=== PATIENT | female | born 1935 | race Caucasian/White ===

== ENCOUNTER 2021-04-13 13:47 | Inpatient (IN) | payer MEDICARE ==
[2021-04-13] MEDS: Losartan 25 MG TAB PO SCH (20:47)
[2021-04-13] MEDS: carBAMazepine 200 MG TAB PO SCH (20:47)
[2021-04-13] MEDS: Atorvastatin Calcium 40 MG TAB PO SCH (20:47)
[2021-04-13] MEDS: Amiodarone 200 MG TAB PO SCH (20:47)
[2021-04-13] MEDS: Metoprolol Tartrate 50 MG TAB PO SCH (20:48)
[2021-04-13] MEDS: hydrALAZINE 25 MG TAB PO SCH (20:48)
[2021-04-13] MEDS ORDERED: Guaifenesin DM 100-10/5 ML UDCUP PO PRN (21:22)
[2021-04-14 07:10] LABS: #Eosinphils 0.1 thou/uL (0.0-0.7); #Lymphocytes 1.5 thou/uL (1.20-3.40); #Neutrophils 13.5 thou/uL (1.40-6.50); %Basophils 0.3 % (0.0-1.0); %Eosinophils 0.8 % (0.0-10.0); %Lymphocytes 9.4 % (21.0-51.0); %Neutrophils 83.6 % (42.0-75.0); Hemoglobin 7.4 g/dL (12.0-16.0); Mean Corpuscular HGB CONC 29.6 g/dL (32.0-36.0); Mean Corpuscular Hemoglobin 29.8 pg (27.0-31.0); Platelet Count 291 thou/uL (130-400); RBC Distribution Width 14.1 % (11.5-14.5); Red Blood Cell (RBC) Count 2.47 mill/uL (4.20-5.40); White Blood Cell (WBC) Count 16.1 thou/uL (4.8-10.8)
[2021-04-14 07:19] LABS: ALT (SGPT) 16 U/L (8-55); AST (SGOT) 22 U/L (5-34); Albumin 2.3 g/dL (3.4-4.8); Alkaline Phosphatase 48 U/L (40-110); Anion Gap 12 mmol/L (10-20); BUN (Urea Nitrogen) 32 mg/dL (9.8-20.1); Bilirubin, Total 0.3 mg/dL (0.2-1.2); Calc. Creatinine Clearance 47 mL/min (70-130); Calcium 8.1 mg/dL (7.8-10.44); Carbon Dioxide 24 mmol/L (23-31); Chloride 103 mmol/L (98-107); Globulin 3.4 g/dL (2.4-3.5); Glucose 121 mg/dL (83-110); Potassium 4.4 mmol/L (3.5-5.1); Protein, Total 5.7 g/dL (5.8-8.1); Sodium 135 mmol/L (136-145)
[2021-04-14] MEDS: Spironolactone 25 MG TAB PO SCH (08:14)
[2021-04-14] MEDS: carBAMazepine 200 MG TAB PO SCH ×2 (09:12→21:42)
[2021-04-14] MEDS: Alogliptin 25 MG TAB PO SCH (09:12)
[2021-04-14] MEDS: Furosemide 40 MG TAB PO SCH (09:13)
[2021-04-14] MEDS: Amlodipine 5 MG TAB PO SCH (09:13)
[2021-04-14] MEDS: Metoprolol Tartrate 50 MG TAB PO SCH ×2 (09:13→21:41)
[2021-04-14] MEDS: hydrALAZINE 25 MG TAB PO SCH ×2 (09:13→21:41)
[2021-04-14] MEDS: Amiodarone 200 MG TAB PO SCH ×2 (09:14→21:41)
[2021-04-14] MEDS: Ezetimibe 10 MG TAB PO SCH (09:14)
[2021-04-14] MEDS: HYDROcodone/Acetaminophen 5/325 mg Tablet PO PRN (13:01)
[2021-04-14] MEDS: Rivaroxaban 10 MG TAB PO SCH (17:27)
[2021-04-14] MEDS: Atorvastatin Calcium 40 MG TAB PO SCH (21:41)
[2021-04-14] MEDS: Losartan 25 MG TAB PO SCH (21:42)
[2021-04-15] MEDS: Spironolactone 25 MG TAB PO SCH (09:35)
[2021-04-15] MEDS: Amlodipine 5 MG TAB PO SCH (09:36)
[2021-04-15] MEDS: Alogliptin 25 MG TAB PO SCH (09:36)
[2021-04-15] MEDS: Amiodarone 200 MG TAB PO SCH ×2 (09:36→21:52)
[2021-04-15] MEDS: Furosemide 40 MG TAB PO SCH (09:37)
[2021-04-15] MEDS: carBAMazepine 200 MG TAB PO SCH ×2 (09:37→21:52)
[2021-04-15] MEDS: Ezetimibe 10 MG TAB PO SCH (09:37)
[2021-04-15] MEDS: hydrALAZINE 25 MG TAB PO SCH ×2 (09:38→21:52)
[2021-04-15] MEDS: Metoprolol Tartrate 50 MG TAB PO SCH ×2 (09:38→21:52)
[2021-04-15] MEDS: HYDROcodone/Acetaminophen 5/325 mg Tablet PO PRN (10:10)
[2021-04-15 12:58] LABS: #Basophils 0.1 thou/uL (0.0-0.2); #Eosinphils 0.1 thou/uL (0.0-0.7); #Lymphocytes 1.5 thou/uL (1.20-3.40); #Monocytes 0.8 thou/uL (0.11-0.59); #Neutrophils 18.1 thou/uL (1.40-6.50); %Basophils 0.4 % (0.0-1.0); %Eosinophils 0.7 % (0.0-10.0); %Lymphocytes 7.2 % (21.0-51.0); %Monocytes 3.9 % (0.0-10.0); %Neutrophils 87.8 % (42.0-75.0); Hemoglobin 7.8 g/dL (12.0-16.0); Mean Corpuscular Hemoglobin 30.1 pg (27.0-31.0); Mean Platelet Volume 7.2 fL (7.4-10.4); Platelet Count 387 thou/uL (130-400); RBC Distribution Width 14.3 % (11.5-14.5); White Blood Cell (WBC) Count 20.6 thou/uL (4.8-10.8)
[2021-04-15] MEDS: Rivaroxaban 10 MG TAB PO SCH (17:23)
[2021-04-15] MEDS: Losartan 25 MG TAB PO SCH (21:51)
[2021-04-15] MEDS: Atorvastatin Calcium 40 MG TAB PO SCH (21:52)
[2021-04-16] MEDS: HYDROcodone/Acetaminophen 5/325 mg Tablet PO PRN (02:43)
[2021-04-16 06:01] LABS: #Eosinphils 0.1 thou/uL (0.0-0.7); #Lymphocytes 1.9 thou/uL (1.20-3.40); #Neutrophils 15.7 thou/uL (1.40-6.50); %Basophils 0.2 % (0.0-1.0); %Eosinophils 0.7 % (0.0-10.0); %Lymphocytes 10.1 % (21.0-51.0); %Monocytes 5.2 % (0.0-10.0); %Neutrophils 83.7 % (42.0-75.0); Hemoglobin 7.4 g/dL (12.0-16.0); Mean Corpuscular HGB CONC 30.5 g/dL (32.0-36.0); Mean Corpuscular Hemoglobin 30.3 pg (27.0-31.0); Mean Corpuscular Volume 99.6 fL (78.0-98.0); Mean Platelet Volume 6.7 fL (7.4-10.4); Platelet Count 391 thou/uL (130-400); RBC Distribution Width 14.2 % (11.5-14.5); Red Blood Cell (RBC) Count 2.43 mill/uL (4.20-5.40); White Blood Cell (WBC) Count 18.7 thou/uL (4.8-10.8)
[2021-04-16] MEDS: Spironolactone 25 MG TAB PO SCH (08:08)
[2021-04-16] MEDS: Amiodarone 200 MG TAB PO SCH ×2 (08:08→20:10)
[2021-04-16] MEDS: Alogliptin 25 MG TAB PO SCH (08:08)
[2021-04-16] MEDS: Ezetimibe 10 MG TAB PO SCH (08:09)
[2021-04-16] MEDS: Amlodipine 5 MG TAB PO SCH (08:09)
[2021-04-16] MEDS: carBAMazepine 200 MG TAB PO SCH ×2 (08:09→20:10)
[2021-04-16] MEDS: Furosemide 40 MG TAB PO SCH (08:10)
[2021-04-16] MEDS: hydrALAZINE 25 MG TAB PO SCH ×2 (08:10→20:11)
[2021-04-16] MEDS: Metoprolol Tartrate 50 MG TAB PO SCH ×2 (08:10→20:10)
[2021-04-16] MEDS: Rivaroxaban 10 MG TAB PO SCH (17:36)
[2021-04-16] MEDS: Losartan 25 MG TAB PO SCH (20:10)
[2021-04-16] MEDS: Atorvastatin Calcium 40 MG TAB PO SCH (20:10)
[2021-04-16] MEDS: Acetaminophen 500 MG TAB PO PRN (20:11)
[2021-04-17] MEDS: Spironolactone 25 MG TAB PO SCH (08:51)
[2021-04-17] MEDS: Ezetimibe 10 MG TAB PO SCH (08:51)
[2021-04-17] MEDS: Metoprolol Tartrate 50 MG TAB PO SCH ×3 (08:51→20:59)
[2021-04-17] MEDS: Furosemide 40 MG TAB PO SCH (08:51)
[2021-04-17] MEDS: Amiodarone 200 MG TAB PO SCH (08:52)
[2021-04-17] MEDS: carBAMazepine 200 MG TAB PO SCH ×2 (08:52→20:56)
[2021-04-17] MEDS: Alogliptin 25 MG TAB PO SCH (08:53)
[2021-04-17] MEDS: Amlodipine 5 MG TAB PO SCH (09:39)
[2021-04-17] MEDS: hydrALAZINE 25 MG TAB PO SCH ×2 (09:39→20:57)
[2021-04-17] MEDS: HYDROcodone/Acetaminophen 5/325 mg Tablet PO PRN (13:54)
[2021-04-17] MEDS: Rivaroxaban 10 MG TAB PO SCH (17:04)
[2021-04-17] MEDS: Atorvastatin Calcium 40 MG TAB PO SCH (20:59)
[2021-04-17] MEDS: Losartan 25 MG TAB PO SCH (21:00)
[2021-04-18] MEDS: HYDROcodone/Acetaminophen 5/325 mg Tablet PO PRN ×2 (01:12→13:14)
[2021-04-18 06:00] LABS: Red Blood Cell (RBC) Count 2.16 mill/uL (4.20-5.40); White Blood Cell (WBC) Count 15.1 thou/uL (4.8-10.8)
[2021-04-18 06:01] LABS: %Neutrophils 80.6 % (42.0-75.0); Hemoglobin 6.5 g/dL (12.0-16.0); Manual Diff?? NO; Mean Corpuscular HGB CONC 29.8 g/dL (32.0-36.0); Mean Corpuscular Hemoglobin 30.2 pg (27.0-31.0); Mean Platelet Volume 6.7 fL (7.4-10.4); Platelet Count 498 thou/uL (130-400); RBC Distribution Width 14.2 % (11.5-14.5)
[2021-04-18 06:02] LABS: #Basophils 0.1 thou/uL (0.0-0.2); #Eosinphils 0.1 thou/uL (0.0-0.7); #Lymphocytes 1.5 thou/uL (1.20-3.40); #Monocytes 1.3 thou/uL (0.11-0.59); #Neutrophils 12.2 thou/uL (1.40-6.50); %Basophils 0.5 % (0.0-1.0); %Eosinophils 0.7 % (0.0-10.0); %Lymphocytes 9.8 % (21.0-51.0); %Monocytes 8.4 % (0.0-10.0)
[2021-04-18 06:16] LABS: Anion Gap 14 mmol/L (10-20); BUN (Urea Nitrogen) 37 mg/dL (9.8-20.1); Calc. Creatinine Clearance 45 mL/min (70-130); Calcium 8.1 mg/dL (7.8-10.44); Carbon Dioxide 25 mmol/L (23-31); Chloride 102 mmol/L (98-107); Glucose 106 mg/dL (83-110); Potassium 4.6 mmol/L (3.5-5.1); Sodium 136 mmol/L (136-145)
[2021-04-18] MEDS: hydrALAZINE 25 MG TAB PO SCH ×2 (08:33→20:38)
[2021-04-18] MEDS: Amlodipine 5 MG TAB PO SCH (08:33)
[2021-04-18] MEDS: Spironolactone 25 MG TAB PO SCH (08:33)
[2021-04-18] MEDS: Alogliptin 25 MG TAB PO SCH (08:33)
[2021-04-18] MEDS: carBAMazepine 200 MG TAB PO SCH ×2 (08:34→20:38)
[2021-04-18] MEDS: Ezetimibe 10 MG TAB PO SCH (08:34)
[2021-04-18] MEDS: Amiodarone 200 MG TAB PO SCH (08:34)
[2021-04-18] MEDS: Furosemide 40 MG TAB PO SCH (08:34)
[2021-04-18] MEDS: Acetaminophen 500 MG TAB PO PRN (08:34)
[2021-04-18] MEDS: Metoprolol Tartrate 50 MG TAB PO SCH ×2 (08:36→20:38)
[2021-04-18] MEDS ORDERED: Furosemide 40 MG/4 ML VIAL SLOW IVP SCH (14:45)
[2021-04-18] MEDS: Rivaroxaban 10 MG TAB PO SCH (16:49)
[2021-04-18] MEDS ORDERED: Sodium Chloride 0.9% 10 ML ONE (20:32)
[2021-04-18] MEDS: Losartan 25 MG TAB PO SCH (20:38)
[2021-04-18] MEDS: Atorvastatin Calcium 40 MG TAB PO SCH (20:38)
[2021-04-19] MEDS: Acetaminophen 500 MG TAB PO PRN (00:55)
[2021-04-19 01:56] LABS: Hemoglobin 9.3 g/dL (12.0-16.0); Red Blood Cell (RBC) Count 3.34 mill/uL (4.20-5.40); White Blood Cell (WBC) Count 12.8 thou/uL (4.8-10.8)
[2021-04-19 01:57] LABS: %Lymphocytes 11.1 % (21.0-51.0); %Neutrophils 78.3 % (42.0-75.0); Manual Diff?? NO; Mean Corpuscular HGB CONC 29.7 g/dL (32.0-36.0); Mean Corpuscular Hemoglobin 27.8 pg (27.0-31.0); Mean Platelet Volume 6.6 fL (7.4-10.4); Platelet Count 533 thou/uL (130-400); RBC Distribution Width 17.2 % (11.5-14.5)
[2021-04-19 01:58] LABS: #Basophils 0.1 thou/uL (0.0-0.2); #Eosinphils 0.2 thou/uL (0.0-0.7); #Lymphocytes 1.4 thou/uL (1.20-3.40); #Monocytes 1.2 thou/uL (0.11-0.59); %Basophils 0.4 % (0.0-1.0); %Eosinophils 1.3 % (0.0-10.0)
[2021-04-19 02:07] LABS: Mean Corpuscular Volume 93.7 fL (78.0-98.0)
[2021-04-19 02:15] LABS: Carbon Dioxide 26 mmol/L (23-31); Glucose 101 mg/dL (83-110)
[2021-04-19 02:18] LABS: Anion Gap 13 mmol/L (10-20); BUN (Urea Nitrogen) 34 mg/dL (9.8-20.1); Calc. Creatinine Clearance 48 mL/min (70-130); Calcium 8.2 mg/dL (7.8-10.44); Chloride 100 mmol/L (98-107); Sodium 135 mmol/L (136-145)
[2021-04-19] MEDS: Spironolactone 25 MG TAB PO SCH (08:10)
[2021-04-19] MEDS: Alogliptin 25 MG TAB PO SCH (08:11)
[2021-04-19] MEDS: Amiodarone 200 MG TAB PO SCH (08:11)
[2021-04-19] MEDS: Amlodipine 5 MG TAB PO SCH (08:12)
[2021-04-19] MEDS: Ezetimibe 10 MG TAB PO SCH (08:12)
[2021-04-19] MEDS: carBAMazepine 200 MG TAB PO SCH ×2 (08:12→21:27)
[2021-04-19] MEDS: hydrALAZINE 25 MG TAB PO SCH ×3 (08:13→21:27)
[2021-04-19] MEDS: Furosemide 40 MG TAB PO SCH (08:13)
[2021-04-19] MEDS: Metoprolol Tartrate 50 MG TAB PO SCH ×2 (08:13→21:29)
[2021-04-19 09:54] LABS: #Basophils 0.1 thou/uL (0.0-0.2); #Eosinphils 0.1 thou/uL (0.0-0.7); #Lymphocytes 1.2 thou/uL (1.20-3.40); #Monocytes 0.9 thou/uL (0.11-0.59); #Neutrophils 10.5 thou/uL (1.40-6.50); %Basophils 0.5 % (0.0-1.0); %Eosinophils 0.9 % (0.0-10.0); %Lymphocytes 9.1 % (21.0-51.0); %Monocytes 7.4 % (0.0-10.0); %Neutrophils 82.2 % (42.0-75.0); Hemoglobin 10.3 g/dL (12.0-16.0); Mean Corpuscular HGB CONC 30.4 g/dL (32.0-36.0); Mean Corpuscular Hemoglobin 27.9 pg (27.0-31.0); Mean Corpuscular Volume 91.9 fL (78.0-98.0); Mean Platelet Volume 6.4 fL (7.4-10.4); Platelet Count 607 thou/uL (130-400); RBC Distribution Width 17.8 % (11.5-14.5); Red Blood Cell (RBC) Count 3.69 mill/uL (4.20-5.40); White Blood Cell (WBC) Count 12.8 thou/uL (4.8-10.8)
[2021-04-19] MEDS ORDERED: Ondansetron PF 4 MG/2 ML Vial IVP SCH (10:00)
[2021-04-19] MEDS ORDERED: Sodium Chloride 0.9% 10 ML ONE (10:06)
[2021-04-19] MEDS: Cephalexin 250 MG CAP PO SCH ×2 (14:41→21:29)
[2021-04-19] MEDS: HYDROcodone/Acetaminophen 5/325 mg Tablet PO PRN (18:55)
[2021-04-19] MEDS: Atorvastatin Calcium 40 MG TAB PO SCH (21:27)
[2021-04-19] MEDS: Losartan 25 MG TAB PO SCH (21:28)
[2021-04-20] MEDS: HYDROcodone/Acetaminophen 5/325 mg Tablet PO PRN ×2 (02:14→12:04)
[2021-04-20 05:56] LABS: #Basophils 0.1 thou/uL (0.0-0.2); #Eosinphils 0.1 thou/uL (0.0-0.7); #Lymphocytes 1.8 thou/uL (1.20-3.40); #Monocytes 1.1 thou/uL (0.11-0.59); #Neutrophils 9.2 thou/uL (1.40-6.50); %Basophils 0.8 % (0.0-1.0); %Eosinophils 0.8 % (0.0-10.0); %Lymphocytes 14.7 % (21.0-51.0); %Monocytes 9.2 % (0.0-10.0); %Neutrophils 74.5 % (42.0-75.0); Hemoglobin 9.6 g/dL (12.0-16.0); Mean Corpuscular HGB CONC 30.3 g/dL (32.0-36.0); Mean Corpuscular Hemoglobin 28.1 pg (27.0-31.0); Mean Corpuscular Volume 92.8 fL (78.0-98.0); Mean Platelet Volume 6.6 fL (7.4-10.4); Platelet Count 572 thou/uL (130-400); RBC Distribution Width 17.8 % (11.5-14.5); Red Blood Cell (RBC) Count 3.41 mill/uL (4.20-5.40); White Blood Cell (WBC) Count 12.3 thou/uL (4.8-10.8)
[2021-04-20 06:12] LABS: Anion Gap 14 mmol/L (10-20); BUN (Urea Nitrogen) 32 mg/dL (9.8-20.1); Calc. Creatinine Clearance 47 mL/min (70-130); Calcium 8.4 mg/dL (7.8-10.44); Carbon Dioxide 26 mmol/L (23-31); Chloride 101 mmol/L (98-107); Glucose 95 mg/dL (83-110); Potassium 4.2 mmol/L (3.5-5.1); Sodium 137 mmol/L (136-145)
[2021-04-20] MEDS: carBAMazepine 200 MG TAB PO SCH ×2 (08:19→20:27)
[2021-04-20] MEDS: Alogliptin 25 MG TAB PO SCH (08:20)
[2021-04-20] MEDS: Spironolactone 25 MG TAB PO SCH (08:20)
[2021-04-20] MEDS: Amiodarone 200 MG TAB PO SCH (08:20)
[2021-04-20] MEDS: Amlodipine 5 MG TAB PO SCH (08:20)
[2021-04-20] MEDS: Furosemide 40 MG TAB PO SCH (08:21)
[2021-04-20] MEDS: Metoprolol Tartrate 50 MG TAB PO SCH ×2 (08:21→20:27)
[2021-04-20] MEDS: Cephalexin 250 MG CAP PO SCH ×3 (08:21→20:28)
[2021-04-20] MEDS: hydrALAZINE 25 MG TAB PO SCH ×3 (08:21→20:28)
[2021-04-20] MEDS: Ezetimibe 10 MG TAB PO SCH (08:21)
[2021-04-20] MEDS: Atorvastatin Calcium 40 MG TAB PO SCH (20:28)
[2021-04-20] MEDS: Losartan 25 MG TAB PO SCH (20:28)
[2021-04-20] MEDS: Acetaminophen 500 MG TAB PO PRN (23:38)
[2021-04-21 06:32] LABS: #Basophils 0.1 thou/uL (0.0-0.2); #Eosinphils 0.1 thou/uL (0.0-0.7); #Monocytes 1.2 thou/uL (0.11-0.59); #Neutrophils 7.8 thou/uL (1.40-6.50); %Basophils 1.2 % (0.0-1.0); %Lymphocytes 17.6 % (21.0-51.0); %Monocytes 11.1 % (0.0-10.0); %Neutrophils 69.1 % (42.0-75.0); Hemoglobin 8.8 g/dL (12.0-16.0); Mean Corpuscular HGB CONC 29.6 g/dL (32.0-36.0); Mean Corpuscular Hemoglobin 27.8 pg (27.0-31.0); Mean Corpuscular Volume 93.9 fL (78.0-98.0); Mean Platelet Volume 6.3 fL (7.4-10.4); Platelet Count 521 thou/uL (130-400); RBC Distribution Width 17.7 % (11.5-14.5); Red Blood Cell (RBC) Count 3.17 mill/uL (4.20-5.40); White Blood Cell (WBC) Count 11.2 thou/uL (4.8-10.8)
[2021-04-21] MEDS: Ezetimibe 10 MG TAB PO SCH (08:18)
[2021-04-21] MEDS: Amiodarone 200 MG TAB PO SCH (08:19)
[2021-04-21] MEDS: hydrALAZINE 25 MG TAB PO SCH ×3 (08:19→20:10)
[2021-04-21] MEDS: Spironolactone 25 MG TAB PO SCH (08:19)
[2021-04-21] MEDS: Alogliptin 25 MG TAB PO SCH (08:19)
[2021-04-21] MEDS: Cephalexin 250 MG CAP PO SCH ×3 (08:19→20:10)
[2021-04-21] MEDS: Furosemide 40 MG TAB PO SCH (08:19)
[2021-04-21] MEDS: carBAMazepine 200 MG TAB PO SCH ×2 (08:20→20:11)
[2021-04-21] MEDS: Metoprolol Tartrate 50 MG TAB PO SCH ×2 (08:20→20:11)
[2021-04-21] MEDS: Amlodipine 5 MG TAB PO SCH (08:21)
[2021-04-21] MEDS ORDERED: Milk Of Magnesia 30 ML UDCUP PO PRN (08:47)
[2021-04-21] MEDS: Acetaminophen 500 MG TAB PO PRN (09:28)
[2021-04-21] MEDS: Bisacodyl 10 MG SUPP PR PRN (09:29)
[2021-04-21] MEDS: Polyethylene Glycol 3350 17 GM Packet PO SCH (09:29)
[2021-04-21] MEDS: Atorvastatin Calcium 40 MG TAB PO SCH (20:10)
[2021-04-21] MEDS: Losartan 25 MG TAB PO SCH (20:11)
[2021-04-22] MEDS: Acetaminophen 500 MG TAB PO PRN ×3 (04:30→23:31)
[2021-04-22 05:57] LABS: Anion Gap 13 mmol/L (10-20); BUN (Urea Nitrogen) 26 mg/dL (9.8-20.1); Calc. Creatinine Clearance 47 mL/min (70-130); Calcium 8.2 mg/dL (7.8-10.44); Carbon Dioxide 27 mmol/L (23-31); Chloride 101 mmol/L (98-107); Glucose 104 mg/dL (83-110); Sodium 137 mmol/L (136-145)
[2021-04-22 06:05] LABS: White Blood Cell (WBC) Count 10.7 thou/uL (4.8-10.8)
[2021-04-22 06:06] LABS: %Lymphocytes 18.7 % (21.0-51.0); %Monocytes 11.5 % (0.0-10.0); %Neutrophils 68.2 % (42.0-75.0); Hemoglobin 8.8 g/dL (12.0-16.0); Mean Corpuscular HGB CONC 30.3 g/dL (32.0-36.0); Mean Corpuscular Hemoglobin 28.2 pg (27.0-31.0); Mean Corpuscular Volume 93.1 fL (78.0-98.0); Mean Platelet Volume 6.3 fL (7.4-10.4); Platelet Count 465 thou/uL (130-400); RBC Distribution Width 16.7 % (11.5-14.5)
[2021-04-22 06:07] LABS: #Basophils 0.1 thou/uL (0.0-0.2); #Eosinphils 0.1 thou/uL (0.0-0.7); #Monocytes 1.2 thou/uL (0.11-0.59); #Neutrophils 7.3 thou/uL (1.40-6.50); %Basophils 0.8 % (0.0-1.0); %Eosinophils 0.9 % (0.0-10.0)
[2021-04-22] MEDS: Polyethylene Glycol 3350 17 GM Packet PO SCH (08:07)
[2021-04-22] MEDS: Metoprolol Tartrate 50 MG TAB PO SCH ×2 (08:08→20:21)
[2021-04-22] MEDS: hydrALAZINE 25 MG TAB PO SCH ×3 (08:08→20:21)
[2021-04-22] MEDS: carBAMazepine 200 MG TAB PO SCH ×2 (08:08→20:20)
[2021-04-22] MEDS: Amlodipine 5 MG TAB PO SCH (08:09)
[2021-04-22] MEDS: Spironolactone 25 MG TAB PO SCH (08:09)
[2021-04-22] MEDS: Alogliptin 25 MG TAB PO SCH (08:10)
[2021-04-22] MEDS: Amiodarone 200 MG TAB PO SCH (08:10)
[2021-04-22] MEDS: Furosemide 40 MG TAB PO SCH (08:10)
[2021-04-22] MEDS: Cephalexin 250 MG CAP PO SCH ×3 (08:11→20:21)
[2021-04-22] MEDS ORDERED: Ezetimibe 10 MG TAB PO SCH (10:15)
[2021-04-22] MEDS: Ezetimibe 10 MG TAB PO SCH (11:49)
[2021-04-22] MEDS: Bisacodyl 10 MG SUPP PR PRN (14:52)
[2021-04-22] MEDS: Atorvastatin Calcium 40 MG TAB PO SCH (20:20)
[2021-04-22] MEDS: Losartan 25 MG TAB PO SCH (20:21)
[2021-04-23 06:21] VITALS: BMI 33.7
[2021-04-23] MEDS: Polyethylene Glycol 3350 17 GM Packet PO SCH (08:44)
[2021-04-23] MEDS: Furosemide 40 MG TAB PO SCH (08:45)
[2021-04-23] MEDS: carBAMazepine 200 MG TAB PO SCH ×2 (08:45→21:17)
[2021-04-23] MEDS: Metoprolol Tartrate 50 MG TAB PO SCH ×2 (08:45→21:18)
[2021-04-23] MEDS: Spironolactone 25 MG TAB PO SCH (08:46)
[2021-04-23] MEDS: Amlodipine 5 MG TAB PO SCH (08:47)
[2021-04-23] MEDS: Alogliptin 25 MG TAB PO SCH (08:47)
[2021-04-23] MEDS: Amiodarone 200 MG TAB PO SCH (08:50)
[2021-04-23] MEDS: Ezetimibe 10 MG TAB PO SCH (08:51)
[2021-04-23] MEDS: hydrALAZINE 25 MG TAB PO SCH ×3 (08:51→21:17)
[2021-04-23] MEDS: Losartan 25 MG TAB PO SCH (21:17)
[2021-04-23] MEDS: Atorvastatin Calcium 40 MG TAB PO SCH (21:17)
[2021-04-23] MEDS: Acetaminophen 500 MG TAB PO PRN (21:18)
[2021-04-23] MEDS: HYDROcodone/Acetaminophen 5/325 mg Tablet PO PRN (23:25)
[2021-04-24 05:47] LABS: #Basophils 0.1 thou/uL (0.0-0.2); #Eosinphils 0.2 thou/uL (0.0-0.7); #Lymphocytes 2.5 thou/uL (1.20-3.40); #Monocytes 1.2 thou/uL (0.11-0.59); #Neutrophils 6.4 thou/uL (1.40-6.50); %Basophils 1.2 % (0.0-1.0); %Eosinophils 1.5 % (0.0-10.0); %Lymphocytes 24.5 % (21.0-51.0); %Monocytes 11.5 % (0.0-10.0); %Neutrophils 61.3 % (42.0-75.0); Mean Corpuscular HGB CONC 29.9 g/dL (32.0-36.0); Mean Corpuscular Hemoglobin 28.1 pg (27.0-31.0); Mean Corpuscular Volume 93.9 fL (78.0-98.0); Mean Platelet Volume 6.3 fL (7.4-10.4); Platelet Count 412 thou/uL (130-400); RBC Distribution Width 16.5 % (11.5-14.5); White Blood Cell (WBC) Count 10.4 thou/uL (4.8-10.8)
[2021-04-24] MEDS: Alogliptin 25 MG TAB PO SCH (08:32)
[2021-04-24] MEDS: Amlodipine 5 MG TAB PO SCH (08:32)
[2021-04-24] MEDS: Amiodarone 200 MG TAB PO SCH (08:32)
[2021-04-24] MEDS: Spironolactone 25 MG TAB PO SCH (08:32)
[2021-04-24] MEDS: Ezetimibe 10 MG TAB PO SCH (08:33)
[2021-04-24] MEDS: carBAMazepine 200 MG TAB PO SCH ×2 (08:33→20:51)
[2021-04-24] MEDS: hydrALAZINE 25 MG TAB PO SCH ×3 (08:34→20:51)
[2021-04-24] MEDS: Metoprolol Tartrate 50 MG TAB PO SCH ×2 (08:34→20:52)
[2021-04-24] MEDS: Furosemide 40 MG TAB PO SCH (08:34)
[2021-04-24] MEDS: Polyethylene Glycol 3350 17 GM Packet PO SCH (08:34)
[2021-04-24] MEDS: Acetaminophen 500 MG TAB PO PRN (13:35)
[2021-04-24] MEDS: Atorvastatin Calcium 40 MG TAB PO SCH (20:51)
[2021-04-24] MEDS: Losartan 25 MG TAB PO SCH (20:52)
[2021-04-25] MEDS: HYDROcodone/Acetaminophen 5/325 mg Tablet PO PRN (01:42)
[2021-04-25] MEDS: Spironolactone 25 MG TAB PO SCH (08:31)
[2021-04-25] MEDS: Alogliptin 25 MG TAB PO SCH (08:32)
[2021-04-25] MEDS: Amiodarone 200 MG TAB PO SCH (08:34)
[2021-04-25] MEDS: Amlodipine 5 MG TAB PO SCH (08:34)
[2021-04-25] MEDS: carBAMazepine 200 MG TAB PO SCH ×2 (08:35→20:23)
[2021-04-25] MEDS: hydrALAZINE 25 MG TAB PO SCH ×3 (08:36→20:22)
[2021-04-25] MEDS: Furosemide 40 MG TAB PO SCH (08:36)
[2021-04-25] MEDS: Ezetimibe 10 MG TAB PO SCH (08:36)
[2021-04-25] MEDS: Polyethylene Glycol 3350 17 GM Packet PO SCH (08:37)
[2021-04-25] MEDS: Metoprolol Tartrate 50 MG TAB PO SCH ×2 (08:37→20:25)
[2021-04-25] MEDS: Acetaminophen 500 MG TAB PO PRN (15:58)
[2021-04-25] MEDS: Atorvastatin Calcium 40 MG TAB PO SCH (20:22)
[2021-04-25] MEDS: Losartan Potassium 50 MG TAB PO SCH (20:25)
[2021-04-26] MEDS: HYDROcodone/Acetaminophen 5/325 mg Tablet PO PRN (01:14)
[2021-04-26] MEDS: Acetaminophen 500 MG TAB PO PRN ×2 (08:50→23:37)
[2021-04-26] MEDS: Ezetimibe 10 MG TAB PO SCH (08:50)
[2021-04-26] MEDS: Amlodipine 5 MG TAB PO SCH (08:51)
[2021-04-26] MEDS: hydrALAZINE 25 MG TAB PO SCH ×3 (08:51→20:19)
[2021-04-26] MEDS: Alogliptin 25 MG TAB PO SCH (08:52)
[2021-04-26] MEDS: Furosemide 40 MG TAB PO SCH (08:52)
[2021-04-26] MEDS: carBAMazepine 200 MG TAB PO SCH ×2 (08:52→20:19)
[2021-04-26] MEDS: Metoprolol Tartrate 50 MG TAB PO SCH ×2 (08:52→20:19)
[2021-04-26] MEDS: Spironolactone 25 MG TAB PO SCH (08:53)
[2021-04-26] MEDS: Amiodarone 200 MG TAB PO SCH (08:53)
[2021-04-26] MEDS: Polyethylene Glycol 3350 17 GM Packet PO SCH (08:53)
[2021-04-26] MEDS: Atorvastatin Calcium 40 MG TAB PO SCH (20:17)
[2021-04-26] MEDS: Losartan Potassium 50 MG TAB PO SCH (20:18)
[2021-04-27] MEDS: Spironolactone 25 MG TAB PO SCH (08:16)
[2021-04-27] MEDS: Amlodipine 5 MG TAB PO SCH (08:17)
[2021-04-27] MEDS: Alogliptin 25 MG TAB PO SCH (08:17)
[2021-04-27] MEDS: Amiodarone 200 MG TAB PO SCH (08:19)
[2021-04-27] MEDS: Ezetimibe 10 MG TAB PO SCH (08:19)
[2021-04-27] MEDS: hydrALAZINE 25 MG TAB PO SCH (08:19)
[2021-04-27] MEDS: Furosemide 40 MG TAB PO SCH (08:19)
[2021-04-27] MEDS: Metoprolol Tartrate 50 MG TAB PO SCH (08:19)
[2021-04-27] MEDS: carBAMazepine 200 MG TAB PO SCH (08:19)
[2021-04-27] MEDS: Polyethylene Glycol 3350 17 GM Packet PO SCH (08:21)
[2021-04-27] MEDS: Acetaminophen 500 MG TAB PO PRN (10:17)
[2021-04-27 15:29] VITALS: BP 154/62; TEMP 97.6
== END 2021-04-27 13:45 | disposition home health service (06) | DRG 559 ==
LOC: NAV ACUTE 16:50
PROVIDERS: ADMIT Internal Medicine; ATTEND Internal Medicine
PROC: 30233N1 Transfusion of Nonautologous Red Blood Cells into Peripheral Vein, Percutaneous Approach (ICD-10-PCS; principal; 2021-04-18)
PROC: 2Y41X5Z Packing of Nasal Region using Packing Material (ICD-10-PCS; 2021-04-18)
DX: Z47.1 Aftercare following joint replacement surgery (principal); J96.01 Acute respiratory failure with hypoxia; D62 Acute posthemorrhagic anemia; K92.1 Melena; I48.0 Paroxysmal atrial fibrillation; I25.10 Atherosclerotic heart disease of native coronary artery without angina pectoris; E78.5 Hyperlipidemia, unspecified; G50.0 Trigeminal neuralgia; I12.9 Hypertensive chronic kidney disease with stage 1 through stage 4 chronic kidney disease, or unspecified chronic kidney disease; E11.22 Type 2 diabetes mellitus with diabetic chronic kidney disease; N32.81 Overactive bladder; R53.81 Other malaise; N18.32 Chronic kidney disease, stage 3b; R04.0 Epistaxis; K59.00 Constipation, unspecified; Z90.49 Acquired absence of other specified parts of digestive tract; Z95.1 Presence of aortocoronary bypass graft; Z95.5 Presence of coronary angioplasty implant and graft; Z98.890 Other specified postprocedural states; Z87.891 Personal history of nicotine dependence; Z88.5 Allergy status to narcotic agent; Z79.01 Long term (current) use of anticoagulants; Z79.899 Other long term (current) drug therapy
CPT/HCPCS: 36416; 36430; 71045; 80048; 80053; 85025; 86850; 86900; 86901; J1940; J2405; P9016

== ENCOUNTER 2022-11-22 16:29 | Inpatient (IN) | payer OTHER, MEDICARE ==
[2022-11-22] MEDS ORDERED: Acetaminophen 650 MG Suppository PR PRN (19:33)
[2022-11-22] MEDS ORDERED: Artificial Tear Sol 15 ML BOT EA EYE PRN (19:33)
[2022-11-22] MEDS ORDERED: Acetaminophen 325 MG TAB PO PRN (19:33)
[2022-11-22] MEDS ORDERED: Benzonatate 100 MG CAP PO PRN (19:33)
[2022-11-22] MEDS ORDERED: Guaifenesin DM 100-10/5 ML UDCUP PO PRN (19:33)
[2022-11-22] MEDS ORDERED: Dextrose 50% Abboject 50 ML SYRINGE SLOW IVP PRN (19:33)
[2022-11-22] MEDS ORDERED: Insulin Regular 300 UNITS/3 ML VIAL SC PRN (19:33)
[2022-11-22] MEDS ORDERED: Cepastat Lozenges 1 LOZ PO PRN (19:33)
[2022-11-22] MEDS ORDERED: Bisacodyl 10 MG SUPP PR PRN (19:33)
[2022-11-22] MEDS ORDERED: Sodium Chloride 0.65% Nasal 44 ML BOT EA NARE PRN (19:33)
[2022-11-22] MEDS ORDERED: Cyclobenzaprine 10 MG TAB PO PRN (22:23)
[2022-11-22] MEDS ORDERED: Melatonin 3 MG TAB PO PRN (22:26)
[2022-11-22] MEDS ORDERED: Ferrous Sulfate 325 MG TAB PO SCH (22:30)
[2022-11-22] MEDS ORDERED: HumaLOG 300 UNITS/3 ML VIAL SC PRN (22:30)
[2022-11-22] MEDS ORDERED: Atorvastatin Calcium 40 MG TAB PO SCH (22:30)
[2022-11-22] MEDS ORDERED: Flecainide 50 MG TAB PO SCH (22:30)
[2022-11-22] MEDS ORDERED: hydrALAZINE 25 MG TAB PO SCH (22:30)
[2022-11-22] MEDS ORDERED: carBAMazepine 200 MG TAB PO SCH (22:30)
[2022-11-22] MEDS: Famotidine 20 MG TAB PO SCH (22:35)
[2022-11-23 01:50] LABS: SARS-CoV-2 NAA Rapid Test Not Detected (NotDetected)
[2022-11-23] MEDS: Levothyroxine Sodium 100 MCG TAB PO SCH (05:48)
[2022-11-23 06:02] LABS: #Basophils 0.1 thou/uL (0.0-0.2); #Eosinphils 0.2 thou/uL (0.0-0.7); #Lymphocytes 2.9 thou/uL (1.20-3.40); #Monocytes 1.1 thou/uL (0.11-0.59); #Neutrophils 5.3 thou/uL (1.40-6.50); %Eosinophils 2.6 % (0.0-10.0); %Lymphocytes 29.9 % (21.0-51.0); %Monocytes 11.5 % (0.0-10.0); %Neutrophils 54.9 % (42.0-75.0); Hemoglobin 8.2 g/dL (12.0-16.0); Mean Corpuscular HGB CONC 32.2 g/dL (32.0-36.0); Mean Corpuscular Hemoglobin 31.4 pg (27.0-31.0); Mean Corpuscular Volume 97.4 fl (78.0-98.0); Mean Platelet Volume 6.8 fL (7.4-10.4); Platelet Count 290 10x3/uL (130-400); RBC Distribution Width 14.1 % (11.5-14.5); Red Blood Cell (RBC) Count 2.62 mill/uL (4.20-5.40); White Blood Cell (WBC) Count 9.6 10x3/uL (4.8-10.8)
[2022-11-23 06:19] LABS: ALT (SGPT) 16 U/L (8-55); AST (SGOT) 40 U/L (5-34); Albumin 2.8 g/dL (3.4-4.8); Alkaline Phosphatase 71 U/L (40-110); Anion Gap 14 mmol/L (10-20); BUN (Urea Nitrogen) 46 mg/dL (9.8-20.1); Bilirubin, Total 0.5 mg/dL (0.2-1.2); Calc. Creatinine Clearance 30 mL/min (70-130); Calcium 8.6 mg/dL (7.8-10.44); Carbon Dioxide 22 mmol/L (23-31); Chloride 102 mmol/L (98-107); Estimated GFR 31; Globulin 3.8 g/dL (2.4-3.5); Glucose 99 mg/dL (83-110); Potassium 4.1 mmol/L (3.5-5.1); Protein, Total 6.6 g/dL (5.8-8.1); Sodium 134 mmol/L (136-145)
[2022-11-23] MEDS: Furosemide 40 MG TAB PO SCH (08:29)
[2022-11-23] MEDS: Spironolactone 25 MG TAB PO SCH (08:29)
[2022-11-23] MEDS: Alogliptin 6.25 MG TAB PO SCH (08:29)
[2022-11-23] MEDS: Clopidogrel Bisulfate 75 MG TAB PO SCH (08:29)
[2022-11-23] MEDS: Flecainide 50 MG TAB PO SCH ×2 (08:29→21:35)
[2022-11-23] MEDS: Ferrous Sulfate 325 MG TAB PO SCH ×2 (08:29→17:44)
[2022-11-23] MEDS: Cyanocobalamin (Vitamin B-12) 1,000 MCG TAB PO SCH (08:33)
[2022-11-23] MEDS: carBAMazepine 200 MG TAB PO SCH ×2 (08:33→21:33)
[2022-11-23] MEDS: Ascorbic Acid 500 mg Chewable Tablet PO SCH ×2 (08:33→21:35)
[2022-11-23] MEDS: Amitriptyline HCl 25 MG TAB PO SCH (08:33)
[2022-11-23] MEDS: Amlodipine 10 MG TAB PO SCH (08:34)
[2022-11-23] MEDS: Gabapentin 100 MG CAP PO SCH (08:34)
[2022-11-23] MEDS: hydrALAZINE 25 MG TAB PO SCH ×2 (08:40→21:35)
[2022-11-23] MEDS ORDERED: Losartan 25 MG TAB PO SCH (09:00)
[2022-11-23] MEDS ORDERED: Alogliptin 25 MG TAB PO SCH (09:00)
[2022-11-23] MEDS ORDERED: Acetaminophen 325 MG TAB PO PRN ×2 (15:00→15:20)
[2022-11-23] MEDS ORDERED: Acetaminophen 650 MG Suppository PR PRN ×3 (15:01→15:55)
[2022-11-23] MEDS: Famotidine 20 MG TAB PO SCH (21:35)
[2022-11-23] MEDS: Atorvastatin Calcium 40 MG TAB PO SCH (21:35)
[2022-11-24 05:33] LABS: #Basophils 0.1 thou/uL (0.0-0.2); #Eosinphils 0.3 thou/uL (0.0-0.7); #Lymphocytes 2.6 thou/uL (1.20-3.40); #Neutrophils 6.6 thou/uL (1.40-6.50); %Eosinophils 2.8 % (0.0-10.0); %Lymphocytes 24.6 % (21.0-51.0); %Monocytes 9.5 % (0.0-10.0); %Neutrophils 62.2 % (42.0-75.0); Hemoglobin 8.1 g/dL (12.0-16.0); Mean Corpuscular HGB CONC 32.2 g/dL (32.0-36.0); Mean Corpuscular Hemoglobin 31.5 pg (27.0-31.0); Mean Corpuscular Volume 97.9 fl (78.0-98.0); Mean Platelet Volume 7.2 fL (7.4-10.4); Platelet Count 322 10x3/uL (130-400); RBC Distribution Width 14.4 % (11.5-14.5); Red Blood Cell (RBC) Count 2.56 mill/uL (4.20-5.40); White Blood Cell (WBC) Count 10.7 10x3/uL (4.8-10.8)
[2022-11-24] MEDS: Levothyroxine Sodium 100 MCG TAB PO SCH (05:53)
[2022-11-24] MEDS: carBAMazepine 200 MG TAB PO SCH ×2 (08:53→20:30)
[2022-11-24] MEDS: Losartan Potassium 50 MG TAB PO SCH (08:53)
[2022-11-24] MEDS: Flecainide 50 MG TAB PO SCH ×2 (08:55→20:31)
[2022-11-24] MEDS: Alogliptin 6.25 MG TAB PO SCH (08:55)
[2022-11-24] MEDS: Cyanocobalamin (Vitamin B-12) 1,000 MCG TAB PO SCH (08:55)
[2022-11-24] MEDS: Ascorbic Acid 500 mg Chewable Tablet PO SCH ×2 (08:56→20:30)
[2022-11-24] MEDS: Clopidogrel Bisulfate 75 MG TAB PO SCH (08:56)
[2022-11-24] MEDS: Spironolactone 25 MG TAB PO SCH (08:56)
[2022-11-24] MEDS: hydrALAZINE 25 MG TAB PO SCH ×2 (08:57→20:31)
[2022-11-24] MEDS: Furosemide 40 MG TAB PO SCH (08:58)
[2022-11-24] MEDS: Amitriptyline HCl 25 MG TAB PO SCH (08:58)
[2022-11-24] MEDS: Ferrous Sulfate 325 MG TAB PO SCH ×2 (08:58→17:42)
[2022-11-24] MEDS: Gabapentin 100 MG CAP PO SCH ×2 (08:59→09:22)
[2022-11-24] MEDS: Amlodipine 10 MG TAB PO SCH (09:01)
[2022-11-24] MEDS: Atorvastatin Calcium 40 MG TAB PO SCH (20:30)
[2022-11-24] MEDS: Famotidine 20 MG TAB PO SCH (20:31)
[2022-11-24] MEDS: Acetaminophen/Codeine 30-300mg Tablet PO PRN (21:19)
[2022-11-25] MEDS: Levothyroxine Sodium 100 MCG TAB PO SCH (05:42)
[2022-11-25 05:55] LABS: #Basophils 0.1 thou/uL (0.0-0.2); #Eosinphils 0.3 thou/uL (0.0-0.7); #Lymphocytes 2.8 thou/uL (1.20-3.40); #Neutrophils 7.1 thou/uL (1.40-6.50); %Basophils 0.8 % (0.0-1.0); %Eosinophils 2.7 % (0.0-10.0); %Lymphocytes 25.2 % (21.0-51.0); %Monocytes 8.9 % (0.0-10.0); %Neutrophils 62.4 % (42.0-75.0); Hemoglobin 7.8 g/dL (12.0-16.0); Mean Corpuscular HGB CONC 31.7 g/dL (32.0-36.0); Mean Platelet Volume 6.7 fL (7.4-10.4); Platelet Count 363 10x3/uL (130-400); RBC Distribution Width 14.6 % (11.5-14.5); Red Blood Cell (RBC) Count 2.51 mill/uL (4.20-5.40); White Blood Cell (WBC) Count 11.3 10x3/uL (4.8-10.8)
[2022-11-25] MEDS: Ascorbic Acid 500 mg Chewable Tablet PO SCH ×2 (08:37→21:31)
[2022-11-25] MEDS: carBAMazepine 200 MG TAB PO SCH ×2 (08:38→21:29)
[2022-11-25] MEDS: Alogliptin 6.25 MG TAB PO SCH (08:38)
[2022-11-25] MEDS: Ferrous Sulfate 325 MG TAB PO SCH ×2 (08:39→16:47)
[2022-11-25] MEDS: Furosemide 40 MG TAB PO SCH (08:39)
[2022-11-25] MEDS: Amitriptyline HCl 25 MG TAB PO SCH (08:39)
[2022-11-25] MEDS: Clopidogrel Bisulfate 75 MG TAB PO SCH (08:39)
[2022-11-25] MEDS: Cyanocobalamin (Vitamin B-12) 1,000 MCG TAB PO SCH (08:39)
[2022-11-25] MEDS: Flecainide 50 MG TAB PO SCH ×2 (08:39→21:31)
[2022-11-25] MEDS: Amlodipine 10 MG TAB PO SCH (08:44)
[2022-11-25] MEDS: hydrALAZINE 25 MG TAB PO SCH ×2 (08:45→21:31)
[2022-11-25] MEDS: Spironolactone 25 MG TAB PO SCH (08:45)
[2022-11-25] MEDS: Losartan Potassium 50 MG TAB PO SCH (08:45)
[2022-11-25] MEDS: Acetaminophen 325 MG TAB PO PRN ×2 (10:20→18:02)
[2022-11-25] MEDS: Atorvastatin Calcium 40 MG TAB PO SCH (21:31)
[2022-11-25] MEDS: Famotidine 20 MG TAB PO SCH (21:32)
[2022-11-26] MEDS: Levothyroxine Sodium 100 MCG TAB PO SCH (05:33)
[2022-11-26 05:56] LABS: #Basophils 0.1 thou/uL (0.0-0.2); #Eosinphils 0.3 thou/uL (0.0-0.7); #Lymphocytes 3.1 thou/uL (1.20-3.40); #Monocytes 1.1 thou/uL (0.11-0.59); #Neutrophils 7.2 thou/uL (1.40-6.50); %Basophils 0.9 % (0.0-1.0); %Eosinophils 2.2 % (0.0-10.0); %Lymphocytes 26.5 % (21.0-51.0); %Neutrophils 61.4 % (42.0-75.0); Hemoglobin 7.9 g/dL (12.0-16.0); Mean Corpuscular HGB CONC 31.7 g/dL (32.0-36.0); Mean Corpuscular Hemoglobin 31.7 pg (27.0-31.0); Mean Platelet Volume 6.8 fL (7.4-10.4); Platelet Count 422 10x3/uL (130-400); RBC Distribution Width 14.9 % (11.5-14.5); Red Blood Cell (RBC) Count 2.48 mill/uL (4.20-5.40); White Blood Cell (WBC) Count 11.7 10x3/uL (4.8-10.8)
[2022-11-26] MEDS: Acetaminophen/Codeine 30-300mg Tablet PO PRN (08:44)
[2022-11-26] MEDS: Amitriptyline HCl 25 MG TAB PO SCH (10:12)
[2022-11-26] MEDS: Ascorbic Acid 500 mg Chewable Tablet PO SCH ×2 (10:12→21:35)
[2022-11-26] MEDS: carBAMazepine 200 MG TAB PO SCH ×2 (10:13→23:20)
[2022-11-26] MEDS: Amlodipine 10 MG TAB PO SCH (10:14)
[2022-11-26] MEDS: Clopidogrel Bisulfate 75 MG TAB PO SCH (10:16)
[2022-11-26] MEDS: Alogliptin 6.25 MG TAB PO SCH (10:16)
[2022-11-26] MEDS: Losartan Potassium 50 MG TAB PO SCH (10:16)
[2022-11-26] MEDS: hydrALAZINE 25 MG TAB PO SCH ×2 (10:17→21:48)
[2022-11-26] MEDS: Cyanocobalamin (Vitamin B-12) 1,000 MCG TAB PO SCH (10:17)
[2022-11-26] MEDS: Furosemide 40 MG TAB PO SCH (10:17)
[2022-11-26] MEDS: Flecainide 50 MG TAB PO SCH ×2 (10:18→21:35)
[2022-11-26] MEDS: Spironolactone 25 MG TAB PO SCH (12:39)
[2022-11-26] MEDS: Ferrous Sulfate 325 MG TAB PO SCH ×2 (12:39→16:27)
[2022-11-26] MEDS: Senokot S 8.6-50 MG TAB PO PRN (17:05)
[2022-11-26] MEDS: Atorvastatin Calcium 40 MG TAB PO SCH (21:35)
[2022-11-26] MEDS: Famotidine 20 MG TAB PO SCH (21:35)
[2022-11-27] MEDS: Levothyroxine Sodium 100 MCG TAB PO SCH (05:40)
[2022-11-27] MEDS: Acetaminophen/Codeine 30-300mg Tablet PO PRN (08:26)
[2022-11-27] MEDS: hydrALAZINE 25 MG TAB PO SCH ×2 (09:03→20:33)
[2022-11-27] MEDS: Ferrous Sulfate 325 MG TAB PO SCH ×2 (09:03→17:22)
[2022-11-27] MEDS: Losartan Potassium 50 MG TAB PO SCH (09:04)
[2022-11-27] MEDS: Ascorbic Acid 500 mg Chewable Tablet PO SCH ×2 (09:04→20:34)
[2022-11-27] MEDS: Spironolactone 25 MG TAB PO SCH (09:04)
[2022-11-27] MEDS: Alogliptin 6.25 MG TAB PO SCH (09:04)
[2022-11-27] MEDS: Amitriptyline HCl 25 MG TAB PO SCH (09:04)
[2022-11-27] MEDS: Furosemide 40 MG TAB PO SCH (09:05)
[2022-11-27] MEDS: Cyanocobalamin (Vitamin B-12) 1,000 MCG TAB PO SCH (09:05)
[2022-11-27] MEDS: Clopidogrel Bisulfate 75 MG TAB PO SCH (09:05)
[2022-11-27] MEDS: Flecainide 50 MG TAB PO SCH ×2 (09:05→20:33)
[2022-11-27] MEDS: Amlodipine 10 MG TAB PO SCH (09:05)
[2022-11-27] MEDS: carBAMazepine 200 MG TAB PO SCH ×2 (09:06→20:32)
[2022-11-27] MEDS ORDERED: Epoetin (ESRD) 20,000 UNITS/ML SC SCH (10:45)
[2022-11-27] MEDS: Acetaminophen 325 MG TAB PO PRN (13:26)
[2022-11-27] MEDS: Bisacodyl 5 MG TAB PO PRN (17:22)
[2022-11-27] MEDS: Atorvastatin Calcium 40 MG TAB PO SCH (20:33)
[2022-11-27] MEDS: Famotidine 20 MG TAB PO SCH (20:33)
[2022-11-28] MEDS: Levothyroxine Sodium 100 MCG TAB PO SCH (05:16)
[2022-11-28 06:24] LABS: #Basophils 0.1 thou/uL (0.0-0.2); #Eosinphils 0.2 thou/uL (0.0-0.7); #Monocytes 1.2 thou/uL (0.11-0.59); #Neutrophils 10.1 thou/uL (1.40-6.50); %Basophils 0.9 % (0.0-1.0); %Eosinophils 1.2 % (0.0-10.0); %Lymphocytes 25.6 % (21.0-51.0); %Monocytes 7.7 % (0.0-10.0); %Neutrophils 64.5 % (42.0-75.0); Hemoglobin 8.1 g/dL (12.0-16.0); Mean Corpuscular HGB CONC 31.5 g/dL (32.0-36.0); Mean Corpuscular Hemoglobin 31.2 pg (27.0-31.0); Mean Corpuscular Volume 99.2 fl (78.0-98.0); Mean Platelet Volume 6.2 fL (7.4-10.4); Platelet Count 519 10x3/uL (130-400); RBC Distribution Width 14.9 % (11.5-14.5); White Blood Cell (WBC) Count 15.7 10x3/uL (4.8-10.8)
[2022-11-28 06:41] LABS: Anion Gap 13 mmol/L (10-20); BUN (Urea Nitrogen) 38 mg/dL (9.8-20.1); Calc. Creatinine Clearance 40 mL/min (70-130); Calcium 8.9 mg/dL (7.8-10.44); Carbon Dioxide 20 mmol/L (23-31); Chloride 107 mmol/L (98-107); Estimated GFR 43; Glucose 109 mg/dL (83-110); Potassium 3.3 mmol/L (3.5-5.1); Sodium 137 mmol/L (136-145)
[2022-11-28] MEDS: Ascorbic Acid 500 mg Chewable Tablet PO SCH ×2 (07:51→21:04)
[2022-11-28] MEDS: Ferrous Sulfate 325 MG TAB PO SCH ×2 (07:52→16:11)
[2022-11-28] MEDS: Flecainide 50 MG TAB PO SCH ×2 (07:52→21:02)
[2022-11-28] MEDS: Furosemide 40 MG TAB PO SCH (07:52)
[2022-11-28] MEDS: Cyanocobalamin (Vitamin B-12) 1,000 MCG TAB PO SCH (07:52)
[2022-11-28] MEDS: Alogliptin 6.25 MG TAB PO SCH (07:52)
[2022-11-28] MEDS: Amitriptyline HCl 25 MG TAB PO SCH (07:52)
[2022-11-28] MEDS: Clopidogrel Bisulfate 75 MG TAB PO SCH (07:52)
[2022-11-28] MEDS: Spironolactone 25 MG TAB PO SCH (07:52)
[2022-11-28] MEDS: carBAMazepine 200 MG TAB PO SCH ×2 (07:53→21:03)
[2022-11-28] MEDS: Losartan Potassium 50 MG TAB PO SCH (08:00)
[2022-11-28] MEDS: Amlodipine 10 MG TAB PO SCH (08:00)
[2022-11-28] MEDS: hydrALAZINE 25 MG TAB PO SCH ×2 (08:00→21:02)
[2022-11-28] MEDS: Senokot S 8.6-50 MG TAB PO PRN (08:26)
[2022-11-28] MEDS: Acetaminophen 325 MG TAB PO PRN ×2 (11:50→23:41)
[2022-11-28] MEDS: Bisacodyl 5 MG TAB PO PRN (12:49)
[2022-11-28] MEDS ORDERED: Potassium Chloride 20 MEQ TAB PO SCH (14:45)
[2022-11-28] MEDS: Polyethylene Glycol 3350 17 GM Packet PO SCH (21:02)
[2022-11-28] MEDS: Atorvastatin Calcium 40 MG TAB PO SCH (21:03)
[2022-11-28] MEDS: Famotidine 20 MG TAB PO SCH (21:04)
[2022-11-29 06:23] LABS: #Basophils 0.1 thou/uL (0.0-0.2); #Eosinphils 0.1 thou/uL (0.0-0.7); #Lymphocytes 2.5 thou/uL (1.20-3.40); #Monocytes 1.1 thou/uL (0.11-0.59); %Basophils 0.7 % (0.0-1.0); %Eosinophils 0.4 % (0.0-10.0); %Lymphocytes 14.8 % (21.0-51.0); %Monocytes 6.5 % (0.0-10.0); %Neutrophils 77.6 % (42.0-75.0); Hemoglobin 7.9 g/dL (12.0-16.0); Mean Corpuscular HGB CONC 31.2 g/dL (32.0-36.0); Mean Corpuscular Hemoglobin 31.4 pg (27.0-31.0); Mean Platelet Volume 6.2 fL (7.4-10.4); Platelet Count 520 10x3/uL (130-400); RBC Distribution Width 15.1 % (11.5-14.5); Red Blood Cell (RBC) Count 2.52 mill/uL (4.20-5.40); White Blood Cell (WBC) Count 16.7 10x3/uL (4.8-10.8)
[2022-11-29 06:31] LABS: Anion Gap 13 mmol/L (10-20); BUN (Urea Nitrogen) 32 mg/dL (9.8-20.1); Calc. Creatinine Clearance 40 mL/min (70-130); Calcium 8.9 mg/dL (7.8-10.44); Carbon Dioxide 21 mmol/L (23-31); Chloride 105 mmol/L (98-107); Estimated GFR 43; Potassium 3.8 mmol/L (3.5-5.1); Sodium 135 mmol/L (136-145)
[2022-11-29 07:05] LABS: Glucose 115 mg/dL (83-110)
[2022-11-29] MEDS: Levothyroxine Sodium 100 MCG TAB PO SCH (07:34)
[2022-11-29] MEDS: carBAMazepine 200 MG TAB PO SCH ×2 (08:14→20:19)
[2022-11-29] MEDS: Spironolactone 25 MG TAB PO SCH (08:14)
[2022-11-29] MEDS: Clopidogrel Bisulfate 75 MG TAB PO SCH (08:15)
[2022-11-29] MEDS: Ascorbic Acid 500 mg Chewable Tablet PO SCH ×2 (08:15→20:19)
[2022-11-29] MEDS: Flecainide 50 MG TAB PO SCH ×2 (08:15→20:20)
[2022-11-29] MEDS: Amlodipine 10 MG TAB PO SCH (08:15)
[2022-11-29] MEDS: Cyanocobalamin (Vitamin B-12) 1,000 MCG TAB PO SCH (08:15)
[2022-11-29] MEDS: hydrALAZINE 25 MG TAB PO SCH ×2 (08:15→20:20)
[2022-11-29] MEDS: Furosemide 40 MG TAB PO SCH (08:15)
[2022-11-29] MEDS: Ferrous Sulfate 325 MG TAB PO SCH ×2 (08:15→16:34)
[2022-11-29] MEDS: Alogliptin 6.25 MG TAB PO SCH (08:15)
[2022-11-29] MEDS: Amitriptyline HCl 25 MG TAB PO SCH (08:15)
[2022-11-29] MEDS: Polyethylene Glycol 3350 17 GM Packet PO SCH ×2 (08:16→20:20)
[2022-11-29] MEDS: Losartan Potassium 50 MG TAB PO SCH (08:18)
[2022-11-29] MEDS: Acetaminophen 325 MG TAB PO PRN (10:07)
[2022-11-29] MEDS: Atorvastatin Calcium 40 MG TAB PO SCH (20:18)
[2022-11-29] MEDS: Famotidine 20 MG TAB PO SCH (20:19)
[2022-11-29] MEDS: Acetaminophen/Codeine 30-300mg Tablet PO PRN (20:21)
[2022-11-30] MEDS: Levothyroxine Sodium 100 MCG TAB PO SCH (05:05)
[2022-11-30 06:09] LABS: #Basophils 0.1 thou/uL (0.0-0.2); #Eosinphils 0.1 thou/uL (0.0-0.7); #Lymphocytes 2.5 thou/uL (1.20-3.40); #Monocytes 1.2 thou/uL (0.11-0.59); #Neutrophils 13.6 thou/uL (1.40-6.50); %Basophils 0.8 % (0.0-1.0); %Eosinophils 0.8 % (0.0-10.0); %Lymphocytes 14.1 % (21.0-51.0); %Monocytes 6.6 % (0.0-10.0); %Neutrophils 77.7 % (42.0-75.0); Hemoglobin 7.7 g/dL (12.0-16.0); Mean Corpuscular HGB CONC 31.8 g/dL (32.0-36.0); Mean Corpuscular Hemoglobin 31.6 pg (27.0-31.0); Mean Corpuscular Volume 99.3 fl (78.0-98.0); Platelet Count 550 10x3/uL (130-400); RBC Distribution Width 15.5 % (11.5-14.5); Red Blood Cell (RBC) Count 2.45 mill/uL (4.20-5.40); White Blood Cell (WBC) Count 17.5 10x3/uL (4.8-10.8)
[2022-11-30 06:24] LABS: Anion Gap 14 mmol/L (10-20); BUN (Urea Nitrogen) 32 mg/dL (9.8-20.1); Calc. Creatinine Clearance 40 mL/min (70-130); Carbon Dioxide 20 mmol/L (23-31); Chloride 106 mmol/L (98-107); Estimated GFR 43; Glucose 105 mg/dL (83-110); Potassium 3.7 mmol/L (3.5-5.1); Sodium 136 mmol/L (136-145)
[2022-11-30] MEDS: Ferrous Sulfate 325 MG TAB PO SCH ×2 (07:54→17:20)
[2022-11-30] MEDS: Spironolactone 25 MG TAB PO SCH (07:54)
[2022-11-30] MEDS: Alogliptin 6.25 MG TAB PO SCH (07:54)
[2022-11-30] MEDS: Ascorbic Acid 500 mg Chewable Tablet PO SCH ×2 (07:55→20:04)
[2022-11-30] MEDS: carBAMazepine 200 MG TAB PO SCH ×2 (07:55→20:05)
[2022-11-30] MEDS: hydrALAZINE 25 MG TAB PO SCH ×2 (07:55→20:06)
[2022-11-30] MEDS: Furosemide 40 MG TAB PO SCH (07:55)
[2022-11-30] MEDS: Flecainide 50 MG TAB PO SCH ×2 (07:56→20:05)
[2022-11-30] MEDS: Amitriptyline HCl 25 MG TAB PO SCH (07:56)
[2022-11-30] MEDS: Amlodipine 10 MG TAB PO SCH (07:56)
[2022-11-30] MEDS: Losartan Potassium 50 MG TAB PO SCH (07:57)
[2022-11-30] MEDS: Cyanocobalamin (Vitamin B-12) 1,000 MCG TAB PO SCH (07:57)
[2022-11-30] MEDS: Clopidogrel Bisulfate 75 MG TAB PO SCH (07:57)
[2022-11-30] MEDS: Polyethylene Glycol 3350 17 GM Packet PO SCH ×2 (07:58→20:11)
[2022-11-30] MEDS: Acetaminophen/Codeine 30-300mg Tablet PO PRN (12:27)
[2022-11-30] MEDS: Atorvastatin Calcium 40 MG TAB PO SCH (20:04)
[2022-11-30] MEDS: Famotidine 20 MG TAB PO SCH (20:05)
[2022-11-30] MEDS: Acetaminophen 325 MG TAB PO PRN (20:06)
[2022-12-01] MEDS: Levothyroxine Sodium 100 MCG TAB PO SCH (05:17)
[2022-12-01 05:41] LABS: #Basophils 0.1 thou/uL (0.0-0.2); #Eosinphils 0.2 thou/uL (0.0-0.7); #Lymphocytes 3.9 thou/uL (1.20-3.40); #Monocytes 1.3 thou/uL (0.11-0.59); #Neutrophils 9.1 thou/uL (1.40-6.50); %Basophils 0.7 % (0.0-1.0); %Eosinophils 1.2 % (0.0-10.0); %Lymphocytes 27.1 % (21.0-51.0); %Monocytes 8.8 % (0.0-10.0); %Neutrophils 62.3 % (42.0-75.0); Hemoglobin 7.6 g/dL (12.0-16.0); Mean Corpuscular HGB CONC 31.2 g/dL (32.0-36.0); Mean Corpuscular Hemoglobin 31.1 pg (27.0-31.0); Mean Corpuscular Volume 99.7 fl (78.0-98.0); Mean Platelet Volume 6.1 fL (7.4-10.4); Platelet Count 589 10x3/uL (130-400); RBC Distribution Width 15.5 % (11.5-14.5); Red Blood Cell (RBC) Count 2.44 mill/uL (4.20-5.40); White Blood Cell (WBC) Count 14.5 10x3/uL (4.8-10.8)
[2022-12-01 06:00] LABS: Anion Gap 14 mmol/L (10-20); BUN (Urea Nitrogen) 34 mg/dL (9.8-20.1); Calc. Creatinine Clearance 34 mL/min (70-130); Calcium 9.1 mg/dL (7.8-10.44); Carbon Dioxide 21 mmol/L (23-31); Chloride 105 mmol/L (98-107); Estimated GFR 35; Glucose 104 mg/dL (83-110); Potassium 3.8 mmol/L (3.5-5.1); Sodium 136 mmol/L (136-145)
[2022-12-01] MEDS: Spironolactone 25 MG TAB PO SCH (08:39)
[2022-12-01] MEDS: Flecainide 50 MG TAB PO SCH ×2 (08:39→20:18)
[2022-12-01] MEDS: Ferrous Sulfate 325 MG TAB PO SCH ×2 (08:39→17:07)
[2022-12-01] MEDS: Furosemide 40 MG TAB PO SCH (08:39)
[2022-12-01] MEDS: Clopidogrel Bisulfate 75 MG TAB PO SCH (08:39)
[2022-12-01] MEDS: Alogliptin 6.25 MG TAB PO SCH (08:39)
[2022-12-01] MEDS: Cyanocobalamin (Vitamin B-12) 1,000 MCG TAB PO SCH (08:40)
[2022-12-01] MEDS: Amlodipine 10 MG TAB PO SCH (08:40)
[2022-12-01] MEDS: Ascorbic Acid 500 mg Chewable Tablet PO SCH ×2 (08:40→20:17)
[2022-12-01] MEDS: Amitriptyline HCl 25 MG TAB PO SCH (08:40)
[2022-12-01] MEDS: hydrALAZINE 25 MG TAB PO SCH ×2 (08:40→20:18)
[2022-12-01] MEDS: carBAMazepine 200 MG TAB PO SCH ×2 (08:40→20:17)
[2022-12-01] MEDS: Polyethylene Glycol 3350 17 GM Packet PO SCH ×2 (08:41→20:18)
[2022-12-01] MEDS: Losartan Potassium 50 MG TAB PO SCH (08:41)
[2022-12-01] MEDS: Acetaminophen/Codeine 30-300mg Tablet PO PRN ×2 (08:46→13:19)
[2022-12-01] MEDS ORDERED: hydrOXYzine 25 MG TAB PO SCH ×2 (17:00→22:45)
[2022-12-01] MEDS: Atorvastatin Calcium 40 MG TAB PO SCH (20:17)
[2022-12-01] MEDS: Famotidine 20 MG TAB PO SCH (20:18)
[2022-12-01] MEDS: Acetaminophen 325 MG TAB PO PRN (23:45)
[2022-12-02 05:20] VITALS: BMI 29.0
[2022-12-02 05:42] LABS: #Basophils 0.1 thou/uL (0.0-0.2); #Eosinphils 0.2 thou/uL (0.0-0.7); #Lymphocytes 3.5 thou/uL (1.20-3.40); #Neutrophils 6.7 thou/uL (1.40-6.50); %Basophils 0.8 % (0.0-1.0); %Eosinophils 2.1 % (0.0-10.0); %Lymphocytes 30.2 % (21.0-51.0); %Monocytes 8.8 % (0.0-10.0); %Neutrophils 58.1 % (42.0-75.0); Hemoglobin 7.9 g/dL (12.0-16.0); Mean Corpuscular HGB CONC 31.5 g/dL (32.0-36.0); Mean Corpuscular Hemoglobin 31.3 pg (27.0-31.0); Mean Corpuscular Volume 99.3 fl (78.0-98.0); Mean Platelet Volume 5.9 fL (7.4-10.4); Platelet Count 598 10x3/uL (130-400); RBC Distribution Width 15.7 % (11.5-14.5); Red Blood Cell (RBC) Count 2.51 mill/uL (4.20-5.40); White Blood Cell (WBC) Count 11.5 10x3/uL (4.8-10.8)
[2022-12-02 05:51] LABS: Anion Gap 13 mmol/L (10-20); BUN (Urea Nitrogen) 34 mg/dL (9.8-20.1); Calc. Creatinine Clearance 30 mL/min (70-130); Calcium 8.9 mg/dL (7.8-10.44); Carbon Dioxide 21 mmol/L (23-31); Chloride 105 mmol/L (98-107); Estimated GFR 31; Glucose 102 mg/dL (83-110); Potassium 3.9 mmol/L (3.5-5.1); Sodium 135 mmol/L (136-145)
[2022-12-02] MEDS: Levothyroxine Sodium 100 MCG TAB PO SCH (05:51)
[2022-12-02 07:59] VITALS: BP 133/56; TEMP 98.3
[2022-12-02] MEDS: Spironolactone 25 MG TAB PO SCH (08:14)
[2022-12-02] MEDS: Furosemide 40 MG TAB PO SCH (08:14)
[2022-12-02] MEDS: Ferrous Sulfate 325 MG TAB PO SCH (08:14)
[2022-12-02] MEDS: Clopidogrel Bisulfate 75 MG TAB PO SCH (08:15)
[2022-12-02] MEDS: Losartan Potassium 50 MG TAB PO SCH (08:15)
[2022-12-02] MEDS: hydrALAZINE 25 MG TAB PO SCH (08:15)
[2022-12-02] MEDS: carBAMazepine 200 MG TAB PO SCH (08:15)
[2022-12-02] MEDS: Flecainide 50 MG TAB PO SCH (08:16)
[2022-12-02] MEDS: Cyanocobalamin (Vitamin B-12) 1,000 MCG TAB PO SCH (08:16)
[2022-12-02] MEDS: Amitriptyline HCl 25 MG TAB PO SCH (08:16)
[2022-12-02] MEDS: Alogliptin 6.25 MG TAB PO SCH (08:16)
[2022-12-02] MEDS: Amlodipine 10 MG TAB PO SCH (08:17)
[2022-12-02] MEDS: Ascorbic Acid 500 mg Chewable Tablet PO SCH (08:17)
[2022-12-02] MEDS: Polyethylene Glycol 3350 17 GM Packet PO SCH (09:16)
[2022-12-02] MEDS: Acetaminophen 325 MG TAB PO PRN (09:49)
== END 2022-12-02 16:25 | disposition home health service (06) | DRG 560 ==
LOC: NAV ACUTE 18:45
PROVIDERS: ADMIT Family Medicine; ATTEND Family Medicine
DX: S72.91XD Unspecified fracture of right femur, subsequent encounter for closed fracture with routine healing (principal); E87.1 Hypo-osmolality and hyponatremia; Z20.822 Contact with and (suspected) exposure to COVID-19; I12.9 Hypertensive chronic kidney disease with stage 1 through stage 4 chronic kidney disease, or unspecified chronic kidney disease; E78.5 Hyperlipidemia, unspecified; E11.22 Type 2 diabetes mellitus with diabetic chronic kidney disease; I48.91 Unspecified atrial fibrillation; G50.0 Trigeminal neuralgia; N18.32 Chronic kidney disease, stage 3b; R53.81 Other malaise; E03.9 Hypothyroidism, unspecified; K59.00 Constipation, unspecified; Z96.641 Presence of right artificial hip joint; W01.0XXD Fall on same level from slipping, tripping and stumbling without subsequent striking against object, subsequent encounter; E87.6 Hypokalemia; D63.1 Anemia in chronic kidney disease; I25.10 Atherosclerotic heart disease of native coronary artery without angina pectoris; M19.90 Unspecified osteoarthritis, unspecified site; Z95.1 Presence of aortocoronary bypass graft; Z95.5 Presence of coronary angioplasty implant and graft; Z88.6 Allergy status to analgesic agent; Z79.899 Other long term (current) drug therapy; Z79.02 Long term (current) use of antithrombotics/antiplatelets; Z79.890 Hormone replacement therapy; Z87.891 Personal history of nicotine dependence
CPT/HCPCS: 36415; 36416; 80048; 80053; 85025; 87811; Q4081; U0002

== ENCOUNTER 2023-03-22 08:05 | Inpatient (IN) | payer MEDICARE ==
[2023-03-22] MEDS ORDERED: Dextrose 50% Abboject 50 ML SYRINGE SLOW IVP PRN (17:26)
[2023-03-22] MEDS ORDERED: Bisacodyl 5 MG TAB PO PRN (17:26)
[2023-03-22] MEDS ORDERED: Senokot S 8.6-50 MG TAB PO PRN (17:26)
[2023-03-22] MEDS ORDERED: Ondansetron ODT 4 MG TAB SL PRN (17:26)
[2023-03-22] MEDS ORDERED: HumaLOG 300 UNITS/3 ML VIAL SC PRN ×2 (17:28)
[2023-03-22] MEDS: Atorvastatin Calcium 40 MG TAB PO SCH (20:40)
[2023-03-22] MEDS: Flecainide 50 MG TAB PO SCH (20:40)
[2023-03-22] MEDS: Amitriptyline HCl 25 MG TAB PO SCH (20:40)
[2023-03-22] MEDS: hydrALAZINE 25 MG TAB PO SCH (20:40)
[2023-03-22] MEDS: Famotidine 20 MG TAB PO SCH (20:41)
[2023-03-23] MEDS: Levothyroxine Sodium 100 MCG TAB PO SCH (06:03)
[2023-03-23 06:05] LABS: ALT (SGPT) 50 U/L (8-55); AST (SGOT) 67 U/L (5-34); Albumin 2.9 g/dL (3.4-4.8); Alkaline Phosphatase 109 U/L (40-110); Anion Gap 16 mmol/L (10-20); BUN (Urea Nitrogen) 69 mg/dL (9.8-20.1); Bilirubin, Total 0.3 mg/dL (0.2-1.2); Calc. Creatinine Clearance 29 mL/min (70-130); Calcium 9.4 mg/dL (7.8-10.44); Carbon Dioxide 20 mmol/L (23-31); Chloride 105 mmol/L (98-107); Estimated GFR 32; Globulin 4.3 g/dL (2.4-3.5); Glucose 97 mg/dL (83-110); Potassium 4.2 mmol/L (3.5-5.1); Protein, Total 7.2 g/dL (5.8-8.1); Sodium 137 mmol/L (136-145)
[2023-03-23 06:22] LABS: Anisocytosis SLIGHT = 6-15 cells (100X) (0-5/hpf); Band 5 % (5-11); Hemoglobin 9.5 g/dL (12.0-16.0); Lymphocytes 33 % (21-51); MDiff Complete? YES; Macrocytosis SLIGHT = 6-15 cells (100X) (0-5/hpf); Mean Corpuscular HGB CONC 30.8 g/dL (32.0-36.0); Mean Corpuscular Volume 94.1 fl (78.0-98.0); Mean Platelet Volume 6.7 fL (7.4-10.4); Monocytes 4 % (0-10); Neutrophil 56 % (42-75); Platelet Count 385 10x3/uL (130-400); Platelet Morphology Comment Appears Adequate; RBC Distribution Width 16.7 % (11.5-14.5); Reactive Lymphocytes 2 % (0-10); Red Blood Cell (RBC) Count 3.28 mill/uL (4.20-5.40); White Blood Cell (WBC) Count 9.3 10x3/uL (4.8-10.8)
[2023-03-23] MEDS: Lidocaine 4% Patch TD SCH (09:27)
[2023-03-23] MEDS: carBAMazepine 200 MG TAB PO SCH ×2 (09:28→17:07)
[2023-03-23] MEDS: Ferrous Sulfate 325 MG TAB PO SCH ×2 (09:29→17:07)
[2023-03-23] MEDS: Amlodipine 10 MG TAB PO SCH (09:29)
[2023-03-23] MEDS: hydrALAZINE 25 MG TAB PO SCH ×2 (09:29→21:11)
[2023-03-23] MEDS: Gabapentin 100 MG CAP PO SCH (09:29)
[2023-03-23] MEDS: Flecainide 50 MG TAB PO SCH ×2 (09:31→21:11)
[2023-03-23] MEDS: Ezetimibe 10 MG TAB PO SCH (09:31)
[2023-03-23] MEDS: Clopidogrel Bisulfate 75 MG TAB PO SCH (09:31)
[2023-03-23] MEDS: Furosemide 40 MG TAB PO SCH (09:31)
[2023-03-23] MEDS: Acetaminophen 325 MG TAB PO PRN ×2 (11:28→21:12)
[2023-03-23] MEDS: Famotidine 20 MG TAB PO SCH (21:11)
[2023-03-23] MEDS: Atorvastatin Calcium 40 MG TAB PO SCH (21:11)
[2023-03-23] MEDS: Amitriptyline HCl 25 MG TAB PO SCH (21:11)
[2023-03-23] MEDS: Transdermal Patch Removal TOP SCH (21:15)
[2023-03-24] MEDS: Levothyroxine Sodium 100 MCG TAB PO SCH (05:55)
[2023-03-24 06:11] VITALS: BMI 27.5
[2023-03-24] MEDS: Flecainide 50 MG TAB PO SCH ×2 (08:21→20:42)
[2023-03-24] MEDS: Amlodipine 10 MG TAB PO SCH (08:21)
[2023-03-24] MEDS: Ezetimibe 10 MG TAB PO SCH (08:22)
[2023-03-24] MEDS: Clopidogrel Bisulfate 75 MG TAB PO SCH (08:22)
[2023-03-24] MEDS: hydrALAZINE 25 MG TAB PO SCH ×2 (08:22→20:42)
[2023-03-24] MEDS: Gabapentin 100 MG CAP PO SCH (08:23)
[2023-03-24] MEDS: Ferrous Sulfate 325 MG TAB PO SCH ×2 (08:23→16:56)
[2023-03-24] MEDS: carBAMazepine 200 MG TAB PO SCH ×2 (08:23→16:56)
[2023-03-24] MEDS: Furosemide 40 MG TAB PO SCH (08:23)
[2023-03-24] MEDS: Lidocaine 4% Patch TD SCH (08:24)
[2023-03-24] MEDS: Atorvastatin Calcium 40 MG TAB PO SCH (20:42)
[2023-03-24] MEDS: Transdermal Patch Removal TOP SCH (20:43)
[2023-03-24] MEDS: Amitriptyline HCl 25 MG TAB PO SCH (20:43)
[2023-03-24] MEDS: Famotidine 20 MG TAB PO SCH (20:43)
[2023-03-24] MEDS: Acetaminophen 325 MG TAB PO PRN (20:43)
[2023-03-25] MEDS: Levothyroxine Sodium 100 MCG TAB PO SCH (05:57)
[2023-03-25 06:28] LABS: Anion Gap 14 mmol/L (10-20); BUN (Urea Nitrogen) 53 mg/dL (9.8-20.1); Calc. Creatinine Clearance 31 mL/min (70-130); Calcium 9.5 mg/dL (7.8-10.44); Chloride 104 mmol/L (98-107); Estimated GFR 35; Glucose 106 mg/dL (83-110); Potassium 4.2 mmol/L (3.5-5.1); Sodium 136 mmol/L (136-145)
[2023-03-25 06:43] LABS: #Basophils 0.1 thou/uL (0.0-0.2); #Eosinphils 0.2 thou/uL (0.0-0.7); #Lymphocytes 2.6 thou/uL (1.20-3.40); #Monocytes 1.2 thou/uL (0.11-0.59); %Basophils 1.2 % (0.0-1.0); %Eosinophils 1.7 % (0.0-10.0); %Lymphocytes 23.1 % (21.0-51.0); %Monocytes 10.6 % (0.0-10.0); %Neutrophils 63.5 % (42.0-75.0); Hemoglobin 9.8 g/dL (12.0-16.0); Mean Corpuscular HGB CONC 31.1 g/dL (32.0-36.0); Mean Corpuscular Hemoglobin 29.5 pg (27.0-31.0); Mean Platelet Volume 6.3 fL (7.4-10.4); Platelet Count 467 10x3/uL (130-400); RBC Distribution Width 16.8 % (11.5-14.5)
[2023-03-25 07:16] LABS: Carbon Dioxide 22 mmol/L (23-31)
[2023-03-25] MEDS: Flecainide 50 MG TAB PO SCH ×2 (08:01→21:06)
[2023-03-25] MEDS: Ezetimibe 10 MG TAB PO SCH (08:02)
[2023-03-25] MEDS: Gabapentin 100 MG CAP PO SCH (08:02)
[2023-03-25] MEDS: hydrALAZINE 25 MG TAB PO SCH ×2 (08:02→21:07)
[2023-03-25] MEDS: Amlodipine 10 MG TAB PO SCH (08:03)
[2023-03-25] MEDS: Ferrous Sulfate 325 MG TAB PO SCH ×2 (08:03→17:08)
[2023-03-25] MEDS: Furosemide 40 MG TAB PO SCH (08:03)
[2023-03-25] MEDS: carBAMazepine 200 MG TAB PO SCH ×2 (08:04→17:09)
[2023-03-25] MEDS: Clopidogrel Bisulfate 75 MG TAB PO SCH (08:04)
[2023-03-25] MEDS: Lidocaine 4% Patch TD SCH (08:45)
[2023-03-25] MEDS: Acetaminophen 325 MG TAB PO PRN ×2 (08:56→21:07)
[2023-03-25] MEDS: Atorvastatin Calcium 40 MG TAB PO SCH (21:06)
[2023-03-25] MEDS: Amitriptyline HCl 25 MG TAB PO SCH (21:07)
[2023-03-25] MEDS: Famotidine 20 MG TAB PO SCH (21:07)
[2023-03-26] MEDS: Transdermal Patch Removal TOP SCH ×2 (00:39→21:10)
[2023-03-26 05:43] LABS: %Neutrophils 62.1 % (42.0-75.0); Mean Corpuscular HGB CONC 31.4 g/dL (32.0-36.0); Mean Corpuscular Hemoglobin 29.1 pg (27.0-31.0); Mean Corpuscular Volume 92.8 fl (78.0-98.0); Mean Platelet Volume 6.1 fL (7.4-10.4); Platelet Count 478 10x3/uL (130-400); RBC Distribution Width 16.4 % (11.5-14.5); Red Blood Cell (RBC) Count 3.08 mill/uL (4.20-5.40); White Blood Cell (WBC) Count 12.3 10x3/uL (4.8-10.8)
[2023-03-26 05:44] LABS: #Basophils 0.1 thou/uL (0.0-0.2); #Eosinphils 0.2 thou/uL (0.0-0.7); #Lymphocytes 3.1 thou/uL (1.20-3.40); #Monocytes 1.2 thou/uL (0.11-0.59); #Neutrophils 7.6 thou/uL (1.40-6.50); %Basophils 1.2 % (0.0-1.0); %Eosinophils 1.7 % (0.0-10.0); %Lymphocytes 24.9 % (21.0-51.0); %Monocytes 10.1 % (0.0-10.0)
[2023-03-26 05:55] LABS: Anion Gap 13 mmol/L (10-20); BUN (Urea Nitrogen) 48 mg/dL (9.8-20.1); Calc. Creatinine Clearance 34 mL/min (70-130); Calcium 9.3 mg/dL (7.8-10.44); Chloride 102 mmol/L (98-107); Estimated GFR 39; Glucose 102 mg/dL (83-110); Potassium 4.3 mmol/L (3.5-5.1); Sodium 134 mmol/L (136-145)
[2023-03-26] MEDS: Levothyroxine Sodium 100 MCG TAB PO SCH (06:06)
[2023-03-26 06:07] LABS: Carbon Dioxide 23 mmol/L (23-31)
[2023-03-26] MEDS: Flecainide 50 MG TAB PO SCH ×2 (07:48→21:08)
[2023-03-26] MEDS: Amlodipine 10 MG TAB PO SCH (07:48)
[2023-03-26] MEDS: hydrALAZINE 25 MG TAB PO SCH ×2 (07:48→21:08)
[2023-03-26] MEDS: Ezetimibe 10 MG TAB PO SCH (07:48)
[2023-03-26] MEDS: Clopidogrel Bisulfate 75 MG TAB PO SCH (07:48)
[2023-03-26] MEDS: Furosemide 40 MG TAB PO SCH (07:49)
[2023-03-26] MEDS: carBAMazepine 200 MG TAB PO SCH ×2 (07:49→16:53)
[2023-03-26] MEDS: Gabapentin 100 MG CAP PO SCH (07:49)
[2023-03-26] MEDS: Ferrous Sulfate 325 MG TAB PO SCH ×2 (07:49→16:53)
[2023-03-26] MEDS: Acetaminophen 325 MG TAB PO PRN (07:50)
[2023-03-26 11:54] LABS: Iron 38 ug/dL (50-170); Iron Binding Capacity, Total 188 mcg/dL (265-497)
[2023-03-26] MEDS: HYDROcodone/Acetaminophen 5/325 mg Tablet PO PRN (15:12)
[2023-03-26] MEDS ORDERED: EPOETIN ALFA-EPBX (NON-ESRD) 40,000 UNITS/ML VIAL IVP SCH (19:30)
[2023-03-26] MEDS ORDERED: EPOETIN ALFA-EPBX (NON-ESRD) 40,000 UNITS/ML VIAL SC SCH (20:30)
[2023-03-26] MEDS: Famotidine 20 MG TAB PO SCH (21:09)
[2023-03-26] MEDS: Atorvastatin Calcium 40 MG TAB PO SCH (21:09)
[2023-03-26] MEDS: Amitriptyline HCl 25 MG TAB PO SCH (21:09)
[2023-03-26] MEDS ORDERED: Epoetin (ESRD) 20,000 UNITS/ML MDV ONE (21:18)
[2023-03-26] MEDS ORDERED: [UNRECOGNIZED DRUG - REMARK] SC SCH (21:30)
[2023-03-27] MEDS: Levothyroxine Sodium 100 MCG TAB PO SCH (05:16)
[2023-03-27] MEDS: Amlodipine 10 MG TAB PO SCH (07:59)
[2023-03-27] MEDS: Furosemide 40 MG TAB PO SCH (07:59)
[2023-03-27] MEDS: Gabapentin 100 MG CAP PO SCH (08:00)
[2023-03-27] MEDS: carBAMazepine 200 MG TAB PO SCH ×2 (08:00→16:24)
[2023-03-27] MEDS: Ezetimibe 10 MG TAB PO SCH (08:00)
[2023-03-27] MEDS: Clopidogrel Bisulfate 75 MG TAB PO SCH (08:00)
[2023-03-27] MEDS: Ferrous Sulfate 325 MG TAB PO SCH ×2 (08:00→16:24)
[2023-03-27] MEDS: hydrALAZINE 25 MG TAB PO SCH ×2 (08:01→20:11)
[2023-03-27] MEDS: Flecainide 50 MG TAB PO SCH ×2 (08:01→20:11)
[2023-03-27] MEDS: Acetaminophen 325 MG TAB PO PRN (08:03)
[2023-03-27] MEDS: HYDROcodone/Acetaminophen 5/325 mg Tablet PO PRN (16:24)
[2023-03-27] MEDS: Famotidine 20 MG TAB PO SCH (20:11)
[2023-03-27] MEDS: Atorvastatin Calcium 40 MG TAB PO SCH (20:11)
[2023-03-27] MEDS: Amitriptyline HCl 25 MG TAB PO SCH (20:12)
[2023-03-27] MEDS: Transdermal Patch Removal TOP SCH (20:13)
[2023-03-28] MEDS: Levothyroxine Sodium 100 MCG TAB PO SCH (05:11)
[2023-03-28 05:57] LABS: Anion Gap 14 mmol/L (10-20); BUN (Urea Nitrogen) 47 mg/dL (9.8-20.1); Calc. Creatinine Clearance 31 mL/min (70-130); Calcium 9.2 mg/dL (7.8-10.44); Carbon Dioxide 21 mmol/L (23-31); Chloride 104 mmol/L (98-107); Estimated GFR 35; Glucose 96 mg/dL (83-110); Potassium 4.2 mmol/L (3.5-5.1); Sodium 135 mmol/L (136-145)
[2023-03-28 06:10] LABS: #Basophils 0.1 thou/uL (0.0-0.2); #Eosinphils 0.2 thou/uL (0.0-0.7); #Lymphocytes 3.2 thou/uL (1.20-3.40); #Monocytes 0.9 thou/uL (0.11-0.59); #Neutrophils 6.4 thou/uL (1.40-6.50); %Eosinophils 1.8 % (0.0-10.0); %Lymphocytes 29.5 % (21.0-51.0); %Monocytes 8.5 % (0.0-10.0); %Neutrophils 59.2 % (42.0-75.0); Hemoglobin 8.2 g/dL (12.0-16.0); Mean Corpuscular HGB CONC 31.6 g/dL (32.0-36.0); Mean Corpuscular Hemoglobin 29.2 pg (27.0-31.0); Mean Corpuscular Volume 92.5 fl (78.0-98.0); Mean Platelet Volume 6.2 fL (7.4-10.4); Platelet Count 491 10x3/uL (130-400); RBC Distribution Width 16.5 % (11.5-14.5); Red Blood Cell (RBC) Count 2.79 mill/uL (4.20-5.40); White Blood Cell (WBC) Count 10.8 10x3/uL (4.8-10.8)
[2023-03-28] MEDS: Acetaminophen 325 MG TAB PO PRN (09:05)
[2023-03-28] MEDS: Gabapentin 100 MG CAP PO SCH (09:07)
[2023-03-28] MEDS: Ferrous Sulfate 325 MG TAB PO SCH ×2 (09:08→17:16)
[2023-03-28] MEDS: carBAMazepine 200 MG TAB PO SCH ×2 (09:09→17:16)
[2023-03-28] MEDS: Clopidogrel Bisulfate 75 MG TAB PO SCH (09:10)
[2023-03-28] MEDS: hydrALAZINE 25 MG TAB PO SCH ×2 (09:10→21:29)
[2023-03-28] MEDS: Furosemide 40 MG TAB PO SCH (09:10)
[2023-03-28] MEDS: Ezetimibe 10 MG TAB PO SCH (09:10)
[2023-03-28] MEDS: Amlodipine 10 MG TAB PO SCH (09:11)
[2023-03-28] MEDS: Flecainide 50 MG TAB PO SCH ×2 (09:11→21:29)
[2023-03-28] MEDS: Transdermal Patch Removal TOP SCH (21:28)
[2023-03-28] MEDS: Amitriptyline HCl 25 MG TAB PO SCH (21:29)
[2023-03-28] MEDS: Famotidine 20 MG TAB PO SCH (21:29)
[2023-03-28] MEDS: Atorvastatin Calcium 40 MG TAB PO SCH (21:29)
[2023-03-29] MEDS: Levothyroxine Sodium 100 MCG TAB PO SCH (05:07)
[2023-03-29 06:09] LABS: #Basophils 0.1 thou/uL (0.0-0.2); #Eosinphils 0.2 thou/uL (0.0-0.7); #Lymphocytes 2.9 thou/uL (1.20-3.40); #Monocytes 0.9 thou/uL (0.11-0.59); #Neutrophils 5.6 thou/uL (1.40-6.50); %Eosinophils 2.3 % (0.0-10.0); %Lymphocytes 30.1 % (21.0-51.0); %Monocytes 9.4 % (0.0-10.0); %Neutrophils 57.2 % (42.0-75.0); Mean Corpuscular HGB CONC 31.3 g/dL (32.0-36.0); Mean Corpuscular Hemoglobin 29.2 pg (27.0-31.0); Mean Corpuscular Volume 93.2 fl (78.0-98.0); Mean Platelet Volume 6.1 fL (7.4-10.4); Platelet Count 519 10x3/uL (130-400); RBC Distribution Width 16.9 % (11.5-14.5); Red Blood Cell (RBC) Count 2.74 mill/uL (4.20-5.40); White Blood Cell (WBC) Count 9.7 10x3/uL (4.8-10.8)
[2023-03-29 06:16] LABS: Anion Gap 15 mmol/L (10-20); BUN (Urea Nitrogen) 43 mg/dL (9.8-20.1); Calc. Creatinine Clearance 34 mL/min (70-130); Carbon Dioxide 21 mmol/L (23-31); Chloride 105 mmol/L (98-107); Estimated GFR 40; Glucose 97 mg/dL (83-110); Potassium 4.7 mmol/L (3.5-5.1); Sodium 136 mmol/L (136-145)
[2023-03-29] MEDS: hydrALAZINE 25 MG TAB PO SCH ×2 (08:12→20:50)
[2023-03-29] MEDS: Amlodipine 10 MG TAB PO SCH (08:12)
[2023-03-29] MEDS: carBAMazepine 200 MG TAB PO SCH ×2 (08:13→17:09)
[2023-03-29] MEDS: Flecainide 50 MG TAB PO SCH ×2 (08:13→20:46)
[2023-03-29] MEDS: Clopidogrel Bisulfate 75 MG TAB PO SCH (08:14)
[2023-03-29] MEDS: Ezetimibe 10 MG TAB PO SCH (08:14)
[2023-03-29] MEDS: Furosemide 40 MG TAB PO SCH (08:14)
[2023-03-29] MEDS: Ferrous Sulfate 325 MG TAB PO SCH ×2 (08:14→17:09)
[2023-03-29] MEDS: Gabapentin 100 MG CAP PO SCH (08:14)
[2023-03-29] MEDS: Famotidine 20 MG TAB PO SCH (20:45)
[2023-03-29] MEDS: Atorvastatin Calcium 40 MG TAB PO SCH (20:46)
[2023-03-29] MEDS: Amitriptyline HCl 25 MG TAB PO SCH (20:46)
[2023-03-30 05:14] LABS: #Basophils 0.1 thou/uL (0.0-0.2); #Eosinphils 0.2 thou/uL (0.0-0.7); #Lymphocytes 3.1 thou/uL (1.20-3.40); #Neutrophils 5.1 thou/uL (1.40-6.50); %Basophils 0.8 % (0.0-1.0); %Eosinophils 2.4 % (0.0-10.0); %Lymphocytes 32.4 % (21.0-51.0); %Monocytes 10.6 % (0.0-10.0); %Neutrophils 53.8 % (42.0-75.0); Hemoglobin 8.1 g/dL (12.0-16.0); Mean Corpuscular HGB CONC 31.8 g/dL (32.0-36.0); Mean Corpuscular Hemoglobin 29.1 pg (27.0-31.0); Mean Corpuscular Volume 91.6 fl (78.0-98.0); Mean Platelet Volume 5.9 fL (7.4-10.4); Platelet Count 535 10x3/uL (130-400); RBC Distribution Width 16.7 % (11.5-14.5); Red Blood Cell (RBC) Count 2.77 mill/uL (4.20-5.40); White Blood Cell (WBC) Count 9.6 10x3/uL (4.8-10.8)
[2023-03-30 05:21] LABS: Anion Gap 15 mmol/L (10-20); BUN (Urea Nitrogen) 38 mg/dL (9.8-20.1); Calc. Creatinine Clearance 39 mL/min (70-130); Carbon Dioxide 21 mmol/L (23-31); Chloride 101 mmol/L (98-107); Estimated GFR 46; Glucose 98 mg/dL (83-110); Potassium 4.5 mmol/L (3.5-5.1); Sodium 132 mmol/L (136-145)
[2023-03-30] MEDS: Levothyroxine Sodium 100 MCG TAB PO SCH (05:57)
[2023-03-30] MEDS: Furosemide 40 MG TAB PO SCH (08:04)
[2023-03-30] MEDS: hydrALAZINE 25 MG TAB PO SCH ×2 (08:04→20:39)
[2023-03-30] MEDS: Ferrous Sulfate 325 MG TAB PO SCH ×2 (08:04→17:10)
[2023-03-30] MEDS: Flecainide 50 MG TAB PO SCH ×2 (08:04→20:39)
[2023-03-30] MEDS: Clopidogrel Bisulfate 75 MG TAB PO SCH (08:04)
[2023-03-30] MEDS: Ezetimibe 10 MG TAB PO SCH (08:04)
[2023-03-30] MEDS: Amlodipine 10 MG TAB PO SCH (08:04)
[2023-03-30] MEDS: carBAMazepine 200 MG TAB PO SCH ×2 (08:05→17:10)
[2023-03-30] MEDS: Gabapentin 100 MG CAP PO SCH (08:06)
[2023-03-30] MEDS: Atorvastatin Calcium 40 MG TAB PO SCH (20:38)
[2023-03-30] MEDS: Amitriptyline HCl 25 MG TAB PO SCH (20:38)
[2023-03-30] MEDS: Famotidine 20 MG TAB PO SCH (20:38)
[2023-03-31 05:08] LABS: #Basophils 0.1 thou/uL (0.0-0.2); #Eosinphils 0.2 thou/uL (0.0-0.7); #Lymphocytes 2.8 thou/uL (1.20-3.40); #Monocytes 1.1 thou/uL (0.11-0.59); #Neutrophils 5.7 thou/uL (1.40-6.50); %Basophils 0.9 % (0.0-1.0); %Eosinophils 1.8 % (0.0-10.0); %Lymphocytes 28.4 % (21.0-51.0); %Monocytes 10.9 % (0.0-10.0); Hemoglobin 8.5 g/dL (12.0-16.0); Mean Corpuscular HGB CONC 31.4 g/dL (32.0-36.0); Mean Corpuscular Hemoglobin 28.9 pg (27.0-31.0); Mean Corpuscular Volume 92.1 fl (78.0-98.0); Mean Platelet Volume 5.8 fL (7.4-10.4); Platelet Count 540 10x3/uL (130-400); RBC Distribution Width 16.6 % (11.5-14.5); Red Blood Cell (RBC) Count 2.94 mill/uL (4.20-5.40); White Blood Cell (WBC) Count 9.9 10x3/uL (4.8-10.8)
[2023-03-31 05:23] LABS: Anion Gap 16 mmol/L (10-20); BUN (Urea Nitrogen) 30 mg/dL (9.8-20.1); Calc. Creatinine Clearance 40 mL/min (70-130); Carbon Dioxide 19 mmol/L (23-31); Chloride 98 mmol/L (98-107); Estimated GFR 48; Glucose 100 mg/dL (83-110); Potassium 4.4 mmol/L (3.5-5.1); Sodium 129 mmol/L (136-145)
[2023-03-31] MEDS: Levothyroxine Sodium 100 MCG TAB PO SCH (06:04)
[2023-03-31] MEDS: Amlodipine 10 MG TAB PO SCH (09:07)
[2023-03-31] MEDS: carBAMazepine 200 MG TAB PO SCH ×2 (09:07→16:39)
[2023-03-31] MEDS: Ferrous Sulfate 325 MG TAB PO SCH ×2 (09:07→16:39)
[2023-03-31] MEDS: hydrALAZINE 25 MG TAB PO SCH ×2 (09:08→20:22)
[2023-03-31] MEDS: Gabapentin 100 MG CAP PO SCH (09:08)
[2023-03-31] MEDS: Flecainide 50 MG TAB PO SCH ×2 (09:08→20:23)
[2023-03-31] MEDS: Ezetimibe 10 MG TAB PO SCH (09:08)
[2023-03-31] MEDS: Furosemide 40 MG TAB PO SCH (09:09)
[2023-03-31] MEDS: Clopidogrel Bisulfate 75 MG TAB PO SCH (09:09)
[2023-03-31] MEDS: Famotidine 20 MG TAB PO SCH (20:23)
[2023-03-31] MEDS: Amitriptyline HCl 25 MG TAB PO SCH (20:23)
[2023-03-31] MEDS: Atorvastatin Calcium 40 MG TAB PO SCH (20:23)
[2023-04-01] MEDS: Levothyroxine Sodium 100 MCG TAB PO SCH (05:21)
[2023-04-01 06:18] LABS: Anion Gap 12 mmol/L (10-20); BUN (Urea Nitrogen) 27 mg/dL (9.8-20.1); Calc. Creatinine Clearance 47 mL/min (70-130); Calcium 8.8 mg/dL (7.8-10.44); Carbon Dioxide 22 mmol/L (23-31); Chloride 99 mmol/L (98-107); Estimated GFR 57; Glucose 98 mg/dL (83-110); Potassium 4.4 mmol/L (3.5-5.1); Sodium 129 mmol/L (136-145)
[2023-04-01] MEDS: Clopidogrel Bisulfate 75 MG TAB PO SCH (09:13)
[2023-04-01] MEDS: Gabapentin 100 MG CAP PO SCH (09:13)
[2023-04-01] MEDS: Ferrous Sulfate 325 MG TAB PO SCH ×2 (09:13→17:17)
[2023-04-01] MEDS: Ezetimibe 10 MG TAB PO SCH (09:14)
[2023-04-01] MEDS: hydrALAZINE 25 MG TAB PO SCH ×2 (09:14→20:43)
[2023-04-01] MEDS: Flecainide 50 MG TAB PO SCH ×2 (09:14→20:43)
[2023-04-01] MEDS: Amlodipine 10 MG TAB PO SCH (09:14)
[2023-04-01] MEDS: carBAMazepine 200 MG TAB PO SCH ×2 (09:15→17:17)
[2023-04-01] MEDS: Furosemide 40 MG TAB PO SCH (09:20)
[2023-04-01] MEDS: Polyethylene Glycol OPTH DROP 15 ML BOT EA EYE PRN (17:17)
[2023-04-01] MEDS: Famotidine 20 MG TAB PO SCH (20:43)
[2023-04-01] MEDS: Atorvastatin Calcium 40 MG TAB PO SCH (20:43)
[2023-04-01] MEDS: Amitriptyline HCl 25 MG TAB PO SCH (20:43)
[2023-04-02] MEDS: Polyethylene Glycol OPTH DROP 15 ML BOT EA EYE PRN (05:09)
[2023-04-02] MEDS: Levothyroxine Sodium 100 MCG TAB PO SCH (05:09)
[2023-04-02 06:05] LABS: #Basophils 0.1 thou/uL (0.0-0.2); #Eosinphils 0.2 thou/uL (0.0-0.7); #Lymphocytes 2.7 thou/uL (1.20-3.40); #Monocytes 1.2 thou/uL (0.11-0.59); #Neutrophils 6.6 thou/uL (1.40-6.50); %Eosinophils 1.5 % (0.0-10.0); %Lymphocytes 25.1 % (21.0-51.0); %Monocytes 10.9 % (0.0-10.0); %Neutrophils 61.6 % (42.0-75.0); Hemoglobin 8.4 g/dL (12.0-16.0); Mean Corpuscular HGB CONC 31.8 g/dL (32.0-36.0); Mean Corpuscular Hemoglobin 29.5 pg (27.0-31.0); Mean Corpuscular Volume 92.7 fl (78.0-98.0); Mean Platelet Volume 5.7 fL (7.4-10.4); Platelet Count 574 10x3/uL (130-400); RBC Distribution Width 17.3 % (11.5-14.5); Red Blood Cell (RBC) Count 2.85 mill/uL (4.20-5.40); White Blood Cell (WBC) Count 10.7 10x3/uL (4.8-10.8)
[2023-04-02 06:22] LABS: Anion Gap 15 mmol/L (10-20); BUN (Urea Nitrogen) 22 mg/dL (9.8-20.1); Calc. Creatinine Clearance 46 mL/min (70-130); Carbon Dioxide 22 mmol/L (23-31); Chloride 100 mmol/L (98-107); Estimated GFR 55; Glucose 99 mg/dL (83-110); Potassium 4.6 mmol/L (3.5-5.1); Sodium 132 mmol/L (136-145)
[2023-04-02] MEDS: carBAMazepine 200 MG TAB PO SCH ×2 (08:36→17:23)
[2023-04-02] MEDS: Flecainide 50 MG TAB PO SCH ×2 (08:36→21:02)
[2023-04-02] MEDS: Ferrous Sulfate 325 MG TAB PO SCH ×2 (08:37→17:23)
[2023-04-02] MEDS: Clopidogrel Bisulfate 75 MG TAB PO SCH (08:37)
[2023-04-02] MEDS: hydrALAZINE 25 MG TAB PO SCH ×2 (08:37→21:02)
[2023-04-02] MEDS: Amlodipine 10 MG TAB PO SCH (08:37)
[2023-04-02] MEDS: Ezetimibe 10 MG TAB PO SCH (08:38)
[2023-04-02] MEDS: Gabapentin 100 MG CAP PO SCH (08:38)
[2023-04-02] MEDS: Losartan 25 MG TAB PO SCH (09:28)
[2023-04-02 20:16] VITALS: TEMP 98.5
[2023-04-02] MEDS: Famotidine 20 MG TAB PO SCH (21:02)
[2023-04-02] MEDS: Atorvastatin Calcium 40 MG TAB PO SCH (21:02)
[2023-04-02] MEDS: Amitriptyline HCl 25 MG TAB PO SCH (21:02)
[2023-04-03] MEDS: Levothyroxine Sodium 100 MCG TAB PO SCH (05:34)
[2023-04-03 06:20] LABS: Anion Gap 12 mmol/L (10-20); BUN (Urea Nitrogen) 19 mg/dL (9.8-20.1); Calc. Creatinine Clearance 46 mL/min (70-130); Calcium 8.9 mg/dL (7.8-10.44); Carbon Dioxide 23 mmol/L (23-31); Chloride 100 mmol/L (98-107); Estimated GFR 55; Glucose 95 mg/dL (83-110); Potassium 4.6 mmol/L (3.5-5.1); Sodium 130 mmol/L (136-145)
[2023-04-03] MEDS: Flecainide 50 MG TAB PO SCH (08:37)
[2023-04-03] MEDS: Amlodipine 10 MG TAB PO SCH (08:38)
[2023-04-03] MEDS: carBAMazepine 200 MG TAB PO SCH (08:38)
[2023-04-03] MEDS: Gabapentin 100 MG CAP PO SCH (08:39)
[2023-04-03] MEDS: Losartan 25 MG TAB PO SCH (08:39)
[2023-04-03] MEDS: hydrALAZINE 25 MG TAB PO SCH (08:39)
[2023-04-03] MEDS: Acetaminophen 325 MG TAB PO PRN (08:40)
[2023-04-03] MEDS: Ezetimibe 10 MG TAB PO SCH (08:42)
[2023-04-03] MEDS: Clopidogrel Bisulfate 75 MG TAB PO SCH (08:42)
[2023-04-03] MEDS: Ferrous Sulfate 325 MG TAB PO SCH (08:42)
[2023-04-03 08:43] VITALS: BP 137/63
== END 2023-04-03 09:48 | disposition home health service (06) | DRG 948 ==
LOC: NAV ACUTE 17:31
PROVIDERS: ADMIT Family Medicine; ATTEND Family Medicine
DX: R53.81 Other malaise (principal); E87.1 Hypo-osmolality and hyponatremia; N18.31 Chronic kidney disease, stage 3a; R33.9 Retention of urine, unspecified; E78.5 Hyperlipidemia, unspecified; I12.9 Hypertensive chronic kidney disease with stage 1 through stage 4 chronic kidney disease, or unspecified chronic kidney disease; D63.1 Anemia in chronic kidney disease; E11.22 Type 2 diabetes mellitus with diabetic chronic kidney disease; M19.90 Unspecified osteoarthritis, unspecified site; Z96.659 Presence of unspecified artificial knee joint; I48.0 Paroxysmal atrial fibrillation; I25.10 Atherosclerotic heart disease of native coronary artery without angina pectoris; Z95.5 Presence of coronary angioplasty implant and graft; Z95.1 Presence of aortocoronary bypass graft; Z79.899 Other long term (current) drug therapy; Z79.02 Long term (current) use of antithrombotics/antiplatelets; Z79.890 Hormone replacement therapy; Z87.891 Personal history of nicotine dependence
CPT/HCPCS: 36415; 36416; 72100; 80048; 80053; 83540; 83550; 85025; J1650; J1815